=== PATIENT | female | born 1955 | race Caucasian/White ===

== ENCOUNTER 2019-05-15 04:00 | Inpatient (IN) | payer MEDICARE, OTHER ==
[~2019-05-15] VITALS: Ht 165.1 cm; Wt 95.3 kg
[2019-05-15 04:28] LABS: BASOPHILS % (AUTO) 0.4 % (0.0-2.0); EOSINOPHILS # (AUTO) 0.1 K/uL (0.0-0.7); EOSINOPHILS % (AUTO) 1.9 % (0.0-7.0); HEMATOCRIT 35.9 % (31.2-41.9); HEMOGLOBIN 12.1 g/dL (10.9-14.3); LYMPHOCYTES # (AUTO) 0.7 K/uL (20.0-40.0); MEAN CORPUSCULAR HEMOGLOBIN 30.8 uug (24.7-32.8); MEAN CORPUSCULAR HGB CONC 34 g/dL (32.3-35.6); MEAN CORPUSCULAR VOLUME 91.5 fL (75.5-95.3); MONOCYTES # (AUTO) 0.3 K/uL (2.0-10.0); NEUTROPHILS # (AUTO) 3.5 K/uL (1.8-8.9); NEUTROPHILS % (AUTO) 75.7 % (38.5-71.5); PLATELET COUNT (AUTO) 181 K/uL (179-408); RED BLOOD CELL COUNT(AUTO) 3.92 MIL/uL (3.63-4.92); WHITE BLOOD COUNT (AUTO) 4.6 K/uL (3.8-11.8)
[2019-05-15 04:36] LABS: CREATININE 0.6 mg/dL (0.6-1.3); POTASSIUM 4.2 mmol/L (3.5-5.1)
[2019-05-15] MEDS ORDERED: methylPREDNISolone SOD SUCC 125 MG/2 ML VIAL ONE (04:45)
[2019-05-15] MEDS ORDERED: ALBUTEROL SULFATE 2.5 MG/3 ML NEBU NEB ONE (04:45)
[2019-05-15] MEDS ORDERED: methylPREDNISolone SOD SUCC 125 MG/2 ML VIAL IV ONE (04:45)
[2019-05-15] MEDS ORDERED: ALBUTEROL SULFATE 2.5 MG/3 ML NEBU ONE (04:51)
[2019-05-15 04:53] LABS: BILIRUBIN,DIRECT 0.1 mg/dL (0.0-0.2); BILIRUBIN,TOTAL 0.3 mg/dL (0.2-1.0); TOTAL PROTEIN, SERUM 6.6 g/dL (6.4-8.2)
[2019-05-15] MEDS ORDERED: IOHEXOL 300MG/ML 100 ML INFUS..BTL ONE (04:54)
[2019-05-15] MEDS ORDERED: SWABABLE VALVE TRANSFER SET EA MC ONE (04:54)
[2019-05-15] MEDS ORDERED: IV NORMAL SALINE 250 ML IV ONE (04:55)
[2019-05-15] MEDS ORDERED: ARIP10TA9 PO (05:23)
[2019-05-15] MEDS ORDERED: GABA-534 PO (05:23)
[2019-05-15] MEDS ORDERED: ACET-2605 PO (05:23)
[2019-05-15] MEDS ORDERED: FLUO20CA40 PO (05:23)
[2019-05-15] MEDS ORDERED: NITR0.4T48 SL (05:23)
[2019-05-15] MEDS ORDERED: TRAM50TA2 PO (05:23)
[2019-05-15] MEDS ORDERED: LORA-259 PO (05:23)
[2019-05-15] MEDS ORDERED: MULT-1075 PO (05:23)
[2019-05-15] MEDS ORDERED: MAG30ORA PO (05:23)
[2019-05-15] MEDS ORDERED: ACET200V4 IH (05:23)
[2019-05-15] MEDS ORDERED: BENZ-13 PO (05:23)
[2019-05-15] MEDS ORDERED: MAGN400O6 PO (05:23)
[2019-05-15] MEDS ORDERED: APIX2.5T PO (05:23)
[2019-05-15] MEDS ORDERED: PANT40TA4 PO (05:23)
[2019-05-15] MEDS ORDERED: GUAI-671 PO (05:23)
[2019-05-15] MEDS ORDERED: DOCU-141 PO (05:23)
[2019-05-15] MEDS ORDERED: FLUT1BLS IH (05:23)
[2019-05-15] MEDS ORDERED: MELA5TAB20 PO (05:23)
[2019-05-15] MEDS ORDERED: IBUP-1953 PO (05:23)
[2019-05-15] MEDS ORDERED: CLON0.1T PO (05:23)
[2019-05-15] MEDS ORDERED: NA P133E RC (05:23)
[2019-05-15] MEDS ORDERED: CRAN3875 PO (05:23)
[2019-05-15] MEDS ORDERED: IPRA3AMP22 IH (05:23)
[2019-05-15] MEDS ORDERED: FLUT16SP BNOSTRILS (05:23)
[2019-05-15] MEDS ORDERED: CRAN425C6 PO (05:23)
[2019-05-15] MEDS ORDERED: ACET-2154 PO (05:23)
[2019-05-15] MEDS ORDERED: FURO20TA4 PO (05:23)
[2019-05-15] MEDS ORDERED: ZOLP5TAB2 PO (05:23)
[2019-05-15] MEDS ORDERED: AMLO10TA4 PO (05:23)
--- NOTE | 2019-05-15 06:21 | NUR ---
Paged [facility] per MD request. Pending call back from Dr. Rubi.
--- NOTE | 2019-05-15 06:25 | NUR ---
Pt. admitted to Med/Surg, under care of Dr. Rubi. Diagnosis: Pneumonia. Belongs List completed. MRSA swab done.
[2019-05-15] MEDS ORDERED: PIPERACILLIN SODIUM/TAZOBACTAM 3.375 G in IV DEXTROSE 5% 50 ML IV ONE (06:30)
[2019-05-15] MEDS ORDERED: LEVOFLOXACIN 500 MG/D5W 100ML PIGGYBACK IV ONE (06:30)
[2019-05-15] MEDS ORDERED: PIPERACILLIN/TAZOBACTAM/D5W 50 ML IV ONE (06:31)
[2019-05-15] MEDS ORDERED: LEVOFLOXACIN 500 MG/D5W 100 ML ONE (06:51)
--- NOTE | 2019-05-15 07:13 | NUR ---
Recieed Pt in bed, watching TV, NAD noted.
[2019-05-15 08:52] VITALS: BP 139/88
[2019-05-15] MEDS ORDERED: HOME MED MISCELLANEOUS XX SCH ×3 (09:45)
[2019-05-15] MEDS ORDERED: ACETAMINOPHEN ES 500 MG TABLET PO PRN (09:45)
[2019-05-15] MEDS ORDERED: BENZONATATE 100 MG CAPSULE PO PRN (09:45)
[2019-05-15] MEDS ORDERED: ACETYLCYSTEINE 20% 800 MG/4 ML VIAL INH PRN (09:45)
[2019-05-15] MEDS ORDERED: FLEET ENEMA 133 ML BOTTLE RC PRN (09:45)
[2019-05-15] MEDS ORDERED: MELATONIN 3 MG TABLET PO PRN (09:45)
[2019-05-15] MEDS ORDERED: TRAMADOL HCL 50 MG TABLET PO PRN (09:45)
[2019-05-15] MEDS ORDERED: NITROGLYCERIN 0.4 MG/TAB BOTTLE SL SCH (09:45)
[2019-05-15] MEDS ORDERED: NITROGLYCERIN 0.4 MG/TAB BOTTLE SL PRN (10:15)
[2019-05-15 11:08] VITALS: BP 139/87
[2019-05-15] MEDS: LEVOFLOXACIN 500 MG/D5W 500 MG in PREMIXED 1 EACH IV SCH (12:03)
[2019-05-15] MEDS: CLONIDINE HCL 0.1 MG TABLET PO SCH ×2 (12:08→15:53)
--- NOTE | 2019-05-15 12:25 | NUR ---
pt resting in bed alert oriented x4. Pt. denies pain/ discomfort. Pt. on 2 L NC. Pt. has productive cough. IV in L AC 20 gauge intact patent running prescribed fluids. Pt. denies SI/ HI. but does state she has had SI in past February 2019. Reported to Dr. Orr hospitalist with no new orders. Safety measures in place. Call light within reach. will continue to monitor pt.
--- NOTE | 2019-05-15 12:27 | NUR ---
Spoke to central supply technician for SCD machine who stated she will bring it up soon. Called again after a few hours. Waiting for SCD machine as pt. is high risk.
--- NOTE | 2019-05-15 14:33 | NUR ---
Provided pt. with SCD. Called RT for breathing treatment as pt. feels SOB. Pt. has been having a productive cough.
[2019-05-15] MEDS: IPRATROPIUM BROMIDE 0.5 MG/2.5 ML NEBU NEB PRN ×2 (14:55→19:12)
[2019-05-15] MEDS: ALBUTEROL SULFATE 2.5 MG/3 ML NEBU NEB PRN ×2 (14:55→19:12)
[2019-05-15 15:20] VITALS: BP 119/92
[2019-05-15] MEDS: MULTIVIT, IRON, MIN NO. 8, FA TABLET PO SCH (15:53)
[2019-05-15] MEDS: ACETAMINOPHEN 325 MG TABLET PO PRN ×2 (15:57→22:10)
[2019-05-15] MEDS: APIXABAN 5 MG TABLET PO SCH (15:57)
--- NOTE | 2019-05-15 18:23 | NUR ---
Pt. resting comfortably in bed. Pt. complaint with plan of care. Ordered breathing treatment for pt.'s SOB. Provided pt. with tylenol for mild headache. Headache relieved by tylenol. Pt. refusing SCD at this time as she is warm. Put fan in room to cool pt. down. Safety measures in place. call light within reach. will continue to monitor pt.
[2019-05-15] MEDS: MAGNESIUM HYDROXIDE 30 ML LIQUID UDC PO PRN (19:51)
[2019-05-15] MEDS: DOCUSATE SODIUM 100 MG CAPSULE PO SCH (20:22)
[2019-05-15 20:35] VITALS: BP 126/97
[2019-05-15] MEDS: GUAIFENESIN/CODEINE 5 ML LIQUID UDC PO PRN (21:18)
[2019-05-15] MEDS: ZOLPIDEM 5 MG TABLET PO PRN (22:07)
[2019-05-16] MEDS: MAG HYDROX/AL HYDROX/SIMETH 30 ML LIQUID UDC PO PRN ×3 (00:26→20:04)
[2019-05-16] MEDS: IPRATROPIUM BROMIDE 0.5 MG/2.5 ML NEBU NEB PRN ×2 (00:51→07:13)
[2019-05-16] MEDS: ALBUTEROL SULFATE 2.5 MG/3 ML NEBU NEB PRN ×2 (00:51→07:13)
[2019-05-16] MEDS: IBUPROFEN 400 MG TABLET PO PRN ×2 (01:32→16:12)
[2019-05-16] MEDS: LORAZEPAM 1 MG TABLET PO PRN ×2 (01:38→16:12)
--- NOTE | 2019-05-16 01:45 | NUR ---
Hands off report received from Shakir montesinos . Pt in no acute distress. Safety and comfort provided. Will continue to monitor.
[2019-05-16] MEDS: ACETAMINOPHEN 325 MG TABLET PO PRN ×2 (04:29→13:37)
[2019-05-16] MEDS: HYDROCODONE/APAP 5-325MG TABLET PO PRN ×2 (05:44→23:37)
[2019-05-16 05:47] VITALS: BP 140/95
[2019-05-16] MEDS: PANTOPRAZOLE SODIUM 40 MG TABLET.DR PO SCH (06:03)
--- NOTE | 2019-05-16 06:26 | NUR ---
Pt keeps on calling nursing station. Pt complaining all the time. All needs are met. Charge nurse and staff tends to her needs. Dr. Rubi ordered norco 5-325mg q6h for pain as per pt doesn't want ultram. Prescribed medication given and pt tolerated it well. Will endorse to incoming nurse for continuity of care.
[2019-05-16] MEDS: LEVOFLOXACIN 500 MG/D5W 500 MG in PREMIXED 1 EACH IV SCH (08:51)
[2019-05-16] MEDS: MULTIVIT, IRON, MIN NO. 8, FA TABLET PO SCH ×2 (08:51→16:12)
[2019-05-16] MEDS: GABAPENTIN 300 MG CAPSULE PO SCH (08:51)
[2019-05-16] MEDS: FLUOXETINE HCL 20 MG CAPSULE PO SCH (08:51)
[2019-05-16] MEDS: ARIPIPRAZOLE 2 MG TABLET PO SCH (08:52)
[2019-05-16] MEDS: CLONIDINE HCL 0.1 MG TABLET PO SCH ×3 (08:52→16:13)
[2019-05-16] MEDS: FLUTICASONE/VILANTEROL 1 EACH BLST.W.DEV IH SCH (08:52)
[2019-05-16] MEDS: FLUTICASONE PROP NASAL SPRAY 16 GM BOTTLE NS SCH (08:52)
[2019-05-16] MEDS: AMLODIPINE 10 MG TABLET PO SCH (08:53)
[2019-05-16] MEDS: FUROSEMIDE 20 MG TABLET PO SCH (08:53)
[2019-05-16] MEDS: APIXABAN 5 MG TABLET PO SCH ×2 (08:55→17:55)
[2019-05-16] MEDS: MAGNESIUM HYDROXIDE 30 ML LIQUID UDC PO PRN (08:56)
[2019-05-16] MEDS ORDERED: ARIPIPRAZOLE 10 MG TABLET PO SCH (09:00)
[2019-05-16] MEDS ORDERED: MAG HYDROX/AL HYDROX/SIMETH 30 ML LIQUID UDC PO SCH (09:00)
--- NOTE | 2019-05-16 11:34 | NUR ---
pt resting in bed alert oriented x4. Pt. denies pain/ discomfort. Pt. on 2 L NC. Pt. has productive cough. IV in R AC 20 gauge intact patent running prescribed antibiotics. Pt. denies SI/ HI. Safety measures in place. Call light within reach. will continue to monitor pt.
[2019-05-16 12:06] VITALS: BP 111/72
[2019-05-16] MEDS: IPRATROPIUM BROMIDE 0.5 MG/2.5 ML NEBU NEB SCH ×3 (12:19→19:22)
[2019-05-16] MEDS: ALBUTEROL SULFATE 2.5 MG/3 ML NEBU NEB SCH ×3 (12:19→19:22)
[2019-05-16] MEDS: methylPREDNISolone SOD SUCC 40 MG/ML VIAL IV SCH ×2 (13:07→21:12)
[2019-05-16 16:11] VITALS: BP 141/78
[2019-05-16] MEDS: GUAIFENESIN/CODEINE 5 ML LIQUID UDC PO PRN (16:12)
--- NOTE | 2019-05-16 19:30 | NUR ---
RECEIVED PT AWAKE, ALERT AND ORIENTED X3. PT IN NO ACUTE RESPIRATORY DISTRESS. PT ANXIOUS, CRYING, AND SCREAMING. TENDS TO HER NEEDS BUT STILL PT STILL DISRUPTIVE AND SCREAMING. WILL CALL MD FOR ORDERS. SAFETY PROVIDED. WILL CONTINUE TO MONITOR.
[2019-05-16] MEDS ORDERED: LORAZEPAM 2 MG/1 ML VIAL IV ONE (19:45)
--- NOTE | 2019-05-16 19:45 | NUR ---
DR WRAPPER STEMMER HAND ORDERED ATIVAN 0.5MG ONCE IV FOR PT.
[2019-05-16] MEDS: ropiniROLE 0.5 MG TABLET PO SCH (20:04)
[2019-05-16] MEDS: DOCUSATE SODIUM 100 MG CAPSULE PO SCH (20:04)
--- NOTE | 2019-05-16 20:04 | NUR ---
ATIVAN GIVEN. PT ANXIOUS, SCREAMING ,YELLING. PT IN NO ACUTE RESPIRATORY DISTRESS. WILL CONTINUE TO MONITOR.
[2019-05-16 20:16] VITALS: BP 140/97
[2019-05-17] MEDS ORDERED: LORAZEPAM 2 MG/1 ML VIAL IV STA (01:01)
--- NOTE | 2019-05-17 01:01 | NUR ---
BAG TURNER ORDERED ATIVAN I MG IV ONETIME. PT YELLING, SCREAMING, THROWING STUFF, PULLED OUT HER IV, CALLING 911, AGITATED. CHANGED THE ROOM OF THE PT BECAUSE PT WAS DISRUPTIVE AND SCREAMING. OTHER PATIENTS COMPLAINING ABOUT HER NOISE. STAFF TENDS TO HER NEEDS. PT REFUSING TO PUT HER DIAPER, GOWN, AND OXYGEN AND HER IV. WILL CONTINUE TO MONITOR.
--- NOTE | 2019-05-17 05:16 | NUR ---
PT YELLING, SCREAMING, AND CURSING STAFF. STAFF TENDS TO HER NEEDS. PT IN NO ACUTE RESPIRATORY DISTRESS. PT REFUSING HER GOWN AND IV. WILL CONTINUE TO MONITOR.
[2019-05-17] MEDS: methylPREDNISolone SOD SUCC 40 MG/ML VIAL IV SCH ×3 (05:30→21:00)
--- NOTE | 2019-05-17 05:45 | NUR ---
PT REFUSING STAFF TO CHANGED HER BEDSHEETS, LINENS, PUT GOWN ON HER AND DIAPER. PT IN NO RESPIRATORY DISTRESS. PT STILL SCREAMING,YELLING AND ABUSIVE TO STAFF. WILL CONTINUE TO MONITOR.
--- NOTE | 2019-05-17 06:15 | NUR ---
pt scooted self to the floor, complete linen changed done,assisted back to bed via 3 man lift, pt stated that she wants the assistant account manager to carolyn how she is when they come.
--- NOTE | 2019-05-17 06:23 | NUR ---
pt had called 911,multiple times, and claiming she is being treated unkindly, police dispatch was informed pt has mental problems and will be seen by psych md in am, continues to call out loudly and saying leave her alone when . being helped.refused to wear gown and tried several occassions to get out of bed to throw herself on the floor,repositioned and kept dry and clean thru out the niite, oxygen inhalation via nasal cannula on, saturating at 94% most of the time.constantly removing diaper and chux to wet the bedsheets ,blanket and pillows. consciously spilling water from the pitcher and throwing items on the floor.
--- NOTE | 2019-05-17 06:42 | NUR ---
pt monitored for safety and comfort, nursing pasteurizing supervisor and nursing staff had actively listened to her ,skilled assessment done regarding pain ,and other needs,
[2019-05-17] MEDS: PANTOPRAZOLE SODIUM 40 MG TABLET.DR PO SCH (06:54)
--- NOTE | 2019-05-17 07:00 | NUR ---
PT IN NO ACUTE RESPIRATORY DISTRESS. GIVEN REPORT TO INCOMING NURSE.PT CONTINUES TO YELL, SCREAM AND VERBALLY ABUSIVE.WILL CONTINUE TO MONITOR.
--- NOTE | 2019-05-17 07:30 | NUR ---
Patient screaming and yelling upon arrival ; Patient calling 911 multiple times stating she wants to be naked so police can see lack of care; patient tried to be oriented and redirected that we could help her with clothing ; patient continually kept screaming; night time nurse explained that psychiatrist was contacted at night but could not changed psych medications as she had no evaluated patient her self and would come in as soon as possible to change Meds and aid with patient tantrums.
[2019-05-17] MEDS: IPRATROPIUM BROMIDE 0.5 MG/2.5 ML NEBU NEB SCH ×4 (07:35→20:11)
[2019-05-17] MEDS: ALBUTEROL SULFATE 2.5 MG/3 ML NEBU NEB SCH ×4 (07:35→20:11)
[2019-05-17] MEDS: APIXABAN 5 MG TABLET PO SCH ×2 (08:56→17:24)
[2019-05-17] MEDS: CLONIDINE HCL 0.1 MG TABLET PO SCH ×3 (08:58→17:21)
[2019-05-17] MEDS: FUROSEMIDE 20 MG TABLET PO SCH (08:58)
[2019-05-17] MEDS: AMLODIPINE 10 MG TABLET PO SCH (08:58)
[2019-05-17] MEDS: MULTIVIT, IRON, MIN NO. 8, FA TABLET PO SCH ×2 (08:58→17:19)
[2019-05-17] MEDS: GABAPENTIN 300 MG CAPSULE PO SCH (08:58)
[2019-05-17] MEDS: FLUTICASONE PROP NASAL SPRAY 16 GM BOTTLE NS SCH (08:59)
[2019-05-17] MEDS: FLUTICASONE/VILANTEROL 1 EACH BLST.W.DEV IH SCH (08:59)
[2019-05-17] MEDS: FLUOXETINE HCL 20 MG CAPSULE PO SCH (08:59)
[2019-05-17] MEDS: ARIPIPRAZOLE 2 MG TABLET PO SCH (09:00)
[2019-05-17] MEDS: MAGNESIUM HYDROXIDE 30 ML LIQUID UDC PO PRN (09:20)
[2019-05-17] MEDS: LEVOFLOXACIN 500 MG/D5W 500 MG in PREMIXED 1 EACH IV SCH (09:42)
[2019-05-17] MEDS: HYDROCODONE/APAP 5-325MG TABLET PO PRN ×2 (09:58→21:37)
[2019-05-17 11:14] LABS: ABG BASE EXCESS 1.3 mmol/L; ABG PCO2 52.9 mmHg (35.0-45.0); ABG PH 7.341 (7.350-7.450); ABG PO2 100.6 mmHg (75.0-100.0); ABG SITE RIGHT RADIAL; ABG TOTAL HEMOGLOBIN 13.5 G/dL (12.0-16.0); COHb 1.7 % (0.5-1.5); MetHb 0.1 % (0.0-1.5); O2Hb 96.2 % (94.0-97.0); VENT MODE Nasal Cannula
[2019-05-17 11:27] VITALS: BP 94/65
[2019-05-17] MEDS: ACETAMINOPHEN 325 MG TABLET PO PRN (12:20)
[2019-05-17] MEDS: CARBIDOPA/LEVODOPA 25-100MG TABLET PO SCH ×2 (12:21→17:19)
[2019-05-17] MEDS: risperiDONE 1 MG TABLET PO SCH ×3 (12:21→20:42)
[2019-05-17] MEDS ORDERED: GABAPENTIN 100 MG CAPSULE PO SCH (13:00)
[2019-05-17] MEDS: IBUPROFEN 400 MG TABLET PO PRN (15:37)
[2019-05-17 15:39] VITALS: BP 108/68
[2019-05-17] MEDS: GABAPENTIN 100 MG CAPSULE PO SCH (17:20)
--- NOTE | 2019-05-17 19:35 | NUR ---
Through out shift lapd arrived as patient called 911 multiple times; lapd explained that patient will have psych consultation arrive soon for adjusting of Meds as patient has multiple psychiatric disorders. Attending psychiatrist came and changed patient meds after consulting patient ; patient agreed to medication adjustment; patient had multiple outburst through out shift; patient tried to be redirected multiple times and reoriented ; patient at times compliant and calm with yet with random large outburst of screaming. Report given to oncoming nurse.
--- NOTE | 2019-05-17 20:00 | NUR ---
Received report from AM nurse regarding patient. Received patient in bed, awake alert and verbally responsive. Complains of generalized body pain, call light issues and complaints regarding care. Provided active listening to patient. And ensured her that care will be provided to her promptly. Patient noted to be slightly manipulative, professional limits maintained. Not in any active distress, breathing treatments on going. No active signs of infection/sepsis. Reinforced teaching on relaxation techniques. Will continue to monitor.
[2019-05-17 20:08] VITALS: BP 114/70
[2019-05-17] MEDS: DOCUSATE SODIUM 100 MG CAPSULE PO SCH (20:45)
[2019-05-17] MEDS: ropiniROLE 0.5 MG TABLET PO SCH (20:46)
[2019-05-17] MEDS ORDERED: MELATONIN 3 MG TABLET PO SCH (21:00)
[2019-05-17] MEDS: LORAZEPAM 1 MG TABLET PO PRN (21:38)
[2019-05-17] MEDS: ZOLPIDEM 5 MG TABLET PO PRN (21:38)
[2019-05-18] MEDS: IBUPROFEN 400 MG TABLET PO PRN (02:00)
[2019-05-18] MEDS: ropiniROLE 0.5 MG TABLET PO SCH (02:47)
[2019-05-18] MEDS: ALBUTEROL SULFATE 2.5 MG/3 ML NEBU NEB PRN (03:22)
[2019-05-18] MEDS: IPRATROPIUM BROMIDE 0.5 MG/2.5 ML NEBU NEB PRN (03:22)
[2019-05-18] MEDS: PANTOPRAZOLE SODIUM 40 MG TABLET.DR PO SCH (05:16)
[2019-05-18] MEDS: methylPREDNISolone SOD SUCC 40 MG/ML VIAL IV SCH (05:16)
[2019-05-18] MEDS: HYDROCODONE/APAP 5-325MG TABLET PO PRN ×2 (05:16→11:16)
[2019-05-18 06:20] LABS: BASOPHILS % (AUTO) 0.1 % (0.0-2.0); HEMATOCRIT 37.2 % (31.2-41.9); HEMOGLOBIN 12.3 g/dL (10.9-14.3); LYMPHOCYTES # (AUTO) 0.5 K/uL (20.0-40.0); LYMPHOCYTES % (AUTO) 13.3 % (20.5-51.5); MEAN CORPUSCULAR HEMOGLOBIN 31.4 uug (24.7-32.8); MEAN CORPUSCULAR HGB CONC 33 g/dL (32.3-35.6); MEAN CORPUSCULAR VOLUME 94.7 fL (75.5-95.3); MONOCYTES # (AUTO) 0.3 K/uL (2.0-10.0); MONOCYTES % (AUTO) 8.7 % (0.0-11.0); NEUTROPHILS # (AUTO) 2.8 K/uL (1.8-8.9); NEUTROPHILS % (AUTO) 77.9 % (38.5-71.5); PLATELET COUNT (AUTO) 172 K/uL (179-408); RED BLOOD CELL COUNT(AUTO) 3.93 MIL/uL (3.63-4.92); WHITE BLOOD COUNT (AUTO) 3.6 K/uL (3.8-11.8)
--- NOTE | 2019-05-18 06:30 | NUR ---
Patient slept intermittently throughout the night. Frequent call lights noted, multiple calls within an hour. About 3-4 hours of straight sleep only. Complained of leg/generalized pain, medicated with Sterling 5/325mg x 2, Tramadol 50 x 1, Ibuprofen x 1 dose as ordered. Effective for a certain time, but pain appears to be chronic. Patient also complains of anxiety Ativan x 1 given. All other due medications given. Pt took Requip late because she initially refused at bedtime, and agreed to take it around 2-3 in the AM. Patient also kept requesting for drinks, snacks and diaper changes. Kept on O2 2LPM, no signs of sepsis noted. Breathing tx given routinely and x1 PRN. All needs attended promptly. No behavioral episodes similar to night prior. Will continue to monitor and endorse accordingly.
[2019-05-18 06:38] LABS: BILIRUBIN,TOTAL 0.2 mg/dL (0.2-1.0); CREATININE 0.6 mg/dL (0.6-1.3); PHOSPHOROUS 4.3 mg/dL (2.5-4.9); POTASSIUM 4.4 mmol/L (3.5-5.1); TOTAL PROTEIN, SERUM 6.4 g/dL (6.4-8.2)
[2019-05-18] MEDS: ALBUTEROL SULFATE 2.5 MG/3 ML NEBU NEB SCH ×2 (07:19→11:08)
[2019-05-18] MEDS: IPRATROPIUM BROMIDE 0.5 MG/2.5 ML NEBU NEB SCH ×2 (07:19→11:08)
[2019-05-18] MEDS ORDERED: METH4TAB3 PO (07:22)
[2019-05-18] MEDS ORDERED: GABA-532 PO (07:22)
[2019-05-18] MEDS ORDERED: ROPI0.5T2 PO (07:22)
[2019-05-18] MEDS ORDERED: RISP1TAB7 PO (07:22)
[2019-05-18] MEDS ORDERED: LEVO500T2 PO (07:25)
[2019-05-18] MEDS: CARBIDOPA/LEVODOPA 25-100MG TABLET PO SCH ×2 (08:04→12:31)
[2019-05-18] MEDS: risperiDONE 1 MG TABLET PO SCH ×2 (08:04→12:31)
[2019-05-18] MEDS: AMLODIPINE 10 MG TABLET PO SCH (08:04)
[2019-05-18] MEDS: MULTIVIT, IRON, MIN NO. 8, FA TABLET PO SCH (08:04)
[2019-05-18] MEDS: CLONIDINE HCL 0.1 MG TABLET PO SCH ×2 (08:04→12:31)
[2019-05-18] MEDS: GABAPENTIN 100 MG CAPSULE PO SCH (08:05)
[2019-05-18] MEDS: FUROSEMIDE 20 MG TABLET PO SCH (08:05)
[2019-05-18] MEDS: FLUTICASONE PROP NASAL SPRAY 16 GM BOTTLE NS SCH (08:07)
[2019-05-18] MEDS: FLUTICASONE/VILANTEROL 1 EACH BLST.W.DEV IH SCH (08:07)
[2019-05-18] MEDS: APIXABAN 5 MG TABLET PO SCH (08:08)
[2019-05-18] MEDS: LEVOFLOXACIN 500 MG/D5W 500 MG in PREMIXED 1 EACH IV SCH (08:17)
[2019-05-18] MEDS: MAG HYDROX/AL HYDROX/SIMETH 30 ML LIQUID UDC PO PRN (08:29)
[2019-05-18] MEDS: GUAIFENESIN/CODEINE 5 ML LIQUID UDC PO PRN (10:16)
[2019-05-18 11:32] VITALS: BP 131/85
[2019-05-18 12:31] VITALS: BP 131/85
--- NOTE | 2019-05-18 13:37 | NUR ---
dc orders received noted and carried out,dc instruction and rn report given to the prison to hetal montesinos per md orders,pt left the facility via ambulances in stable condition
[2019-05-18] MEDS ORDERED: methylPREDNISolone SOD SUCC 40 MG/ML VIAL IV SCH (18:00)
== END 2019-05-18 13:45 | DRG 190 ==
LOC: ER 04:06 → MEDSURG3 07:49
PROVIDERS: ADMIT Internal Medicine; ATTEND Internal Medicine Nephrology
DX: J44.1 Chronic obstructive pulmonary disease with (acute) exacerbation (principal); J15.9 Unspecified bacterial pneumonia; J98.11 Atelectasis; J44.0 Chronic obstructive pulmonary disease with (acute) lower respiratory infection; E66.01 Morbid (severe) obesity due to excess calories; G20 Parkinson's disease; E03.9 Hypothyroidism, unspecified; G25.81 Restless legs syndrome; K21.9 Gastro-esophageal reflux disease without esophagitis; M62.50 Muscle wasting and atrophy, not elsewhere classified, unspecified site; F25.0 Schizoaffective disorder, bipolar type; F41.9 Anxiety disorder, unspecified; I11.0 Hypertensive heart disease with heart failure; I50.9 Heart failure, unspecified; F60.3 Borderline personality disorder; Z79.01 Long term (current) use of anticoagulants; Z79.51 Long term (current) use of inhaled steroids; Z79.899 Other long term (current) drug therapy; Z83.2 Family history of diseases of the blood and blood-forming organs and certain disorders involving the immune mechanism; Z87.891 Personal history of nicotine dependence; M19.90 Unspecified osteoarthritis, unspecified site; J20.9 Acute bronchitis, unspecified; Z88.8 Allergy status to other drugs, medicaments and biological substances
CPT/HCPCS: 36415; 36600; 70030-TC; 71045; 71275; 82785; 83605; 83735; 84100; 85025; 85730; 87040; 93005; 94640; 94664; A4663; G0378; J1956; J2060; J2543; J2920; J2930; J3535; J3590; J7050; Q9967

== ENCOUNTER 2019-09-01 16:03 | Inpatient (IN) | payer MEDICARE, OTHER ==
[~2019-09-01] VITALS: Ht 165.1 cm; Wt 95.3 kg
[~2019-09-01 16:03] MED LIST: ACET-2154 PO; ACET-2605 PO; ACET200V4 IH; AMLO10TA4 PO; APIX2.5T PO; BENZ-13 PO; CLON0.1T PO; CRAN3875 PO; CRAN425C6 PO; DOCU-141 PO; FLUO20CA42 PO; FLUT16SP BNOSTRILS; FLUT1BLS IH; FURO20TA4 PO; GABA-532 PO; GUAI-671 PO; IBUP-1953 PO; IPRA3AMP22 IH; LEVO500T2 PO; LORA-259 PO; MAG30ORA PO; MAGN400O6 PO; MELA5TAB20 PO; METH4TAB3 PO; MULT-1075 PO; NA P133E RC; NITR0.4T48 SL; PANT40TA4 PO; RISP1TAB7 PO; ROPI0.5T4 PO; TRAM50TA2 PO; ZOLP5TAB2 PO
[2019-09-01] MEDS ORDERED: IV NORMAL SALINE 1000 ML BAG IV ONE (16:30)
[2019-09-01] MEDS ORDERED: LATA2.5D2 EACHEYE (16:43)
[2019-09-01] MEDS ORDERED: CRAN3875 PO (16:43)
[2019-09-01] MEDS ORDERED: HYDR-4075 PO (16:43)
[2019-09-01] MEDS ORDERED: SIMETHICONE PO (16:43)
[2019-09-01] MEDS ORDERED: DIAZ5TAB PO (16:43)
[2019-09-01] MEDS ORDERED: BACL10TA PO (16:43)
[2019-09-01] MEDS ORDERED: LACT1CAP61 PO (16:43)
[2019-09-01] MEDS ORDERED: BISA10SU61 RC (16:43)
[2019-09-01] MEDS ORDERED: NA P133E RC (16:43)
[2019-09-01 16:46] LABS: EOSINOPHILS % (AUTO) 0.1 % (0.0-7.0); LYMPHOCYTES # (AUTO) 0.3 K/uL (20.0-40.0); MONOCYTES # (AUTO) 0.2 K/uL (2.0-10.0); NEUTROPHILS # (AUTO) 0.9 K/uL (1.8-8.9); RED BLOOD CELL COUNT(AUTO) 4.29 MIL/uL (3.63-4.92)
[2019-09-01 16:48] LABS: BASOPHILS % (AUTO) 0.3 % (0.0-2.0); HEMATOCRIT 38.7 % (31.2-41.9); LYMPHOCYTES % (AUTO) 20.2 % (20.5-51.5); MEAN CORPUSCULAR HEMOGLOBIN 30.4 uug (24.7-32.8); MEAN CORPUSCULAR HGB CONC 34 g/dL (32.3-35.6); MEAN CORPUSCULAR VOLUME 90.3 fL (75.5-95.3); MONOCYTES % (AUTO) 17.3 % (0.0-11.0); NEUTROPHILS % (AUTO) 62.1 % (38.5-71.5); PLATELET COUNT (AUTO) 80 K/uL (179-408)
[2019-09-01 16:52] LABS: CREATININE 0.7 mg/dL (0.6-1.3); WHITE BLOOD COUNT (AUTO) 1.4 K/uL (3.8-11.8)
[2019-09-01] MEDS ORDERED: ALBUTEROL SULFATE 2.5 MG/3 ML NEBU NEB ONE (17:00)
[2019-09-01] MEDS ORDERED: IPRATROPIUM BROMIDE 0.5 MG/2.5 ML NEBU NEB ONE (17:00)
[2019-09-01 17:08] LABS: BILIRUBIN,DIRECT 0.1 mg/dL (0.0-0.2); BILIRUBIN,TOTAL 0.1 mg/dL (0.2-1.0); TOTAL PROTEIN, SERUM 6.6 g/dL (6.4-8.2)
[2019-09-01] MEDS ORDERED: IPRATROPIUM BROMIDE 0.5 MG/2.5 ML NEBU ONE (17:14)
[2019-09-01] MEDS ORDERED: ALBUTEROL SULFATE 2.5 MG/3 ML NEBU ONE (17:14)
[2019-09-01 17:20] LABS: BAND % (MANUAL) 15 % (0-10); LYMPHOCYTES % (MANUAL) 20 % (20-40); MONOCYTES % (MANUAL) 17 % (2-10); NEUTROPHILS % (MANUAL) 48 % (42-75)
--- NOTE | 2019-09-01 17:40 | NUR ---
pt complaining of back pain, requesting tylenol. notified.
[2019-09-01] MEDS ORDERED: ACETAMINOPHEN ES 500 MG TABLET ONE (17:48)
[2019-09-01] MEDS ORDERED: ACETAMINOPHEN 325 MG TABLET PO ONE (18:00)
--- NOTE | 2019-09-01 18:37 | NUR ---
pt transfered to floor in stable condition. pt was on o2 via nc, 3 ltre. pt coughing improved after breathing treatment. pt transfered to floor following hospital covid guidelines.
[2019-09-01 18:49] VITALS: BP 131/79
--- NOTE | 2019-09-01 19:10 | NUR ---
Received pt from ED via [facility] at 1834. VS taken per protocol, noted with elevated temp 100.7F. Cooling measures initiated. Pt received tylenol at ED. Pt. A/OX4, verbally responsive and able to make her needs know. Incontinent of both b&B. PIV on LFA 20G patent and intact. Skin intact, no wound seen during skin assessment. Currently on 3LPM via NC and tolerating well. All pt. needs attended at this time. Safety measures in place. Call light and all frequently used items within pt. reach. Will endorse to oncoming shift accordingly.
[2019-09-01] MEDS ORDERED: BACLOFEN 10 MG TABLET PO PRN (19:15)
[2019-09-01] MEDS ORDERED: FLUTICASONE PROP NASAL SPRAY 16 GM BOTTLE NS PRN (19:15)
[2019-09-01] MEDS ORDERED: ALBUTEROL SULFATE 2.5 MG/3 ML NEBU NEB PRN (19:30)
[2019-09-01] MEDS ORDERED: IPRATROPIUM BROMIDE 0.5 MG/2.5 ML NEBU NEB PRN (19:30)
[2019-09-01 20:00] VITALS: BP 118/82
[2019-09-01] MEDS: LATANOPROST OPHT DROP 2.5 ML BOTTLE EACHEYE SCH (20:52)
[2019-09-01] MEDS: risperiDONE 1 MG TABLET PO SCH (20:53)
[2019-09-01] MEDS: ropiniROLE 0.5 MG TABLET PO SCH (20:53)
[2019-09-01] MEDS: APIXABAN 5 MG TABLET PO SCH (20:55)
[2019-09-01] MEDS: DOCUSATE SODIUM 100 MG CAPSULE PO SCH (21:00)
[2019-09-01] MEDS: CULTURELLE CAPSULE PO SCH (21:00)
[2019-09-01] MEDS: MAG HYDROX/AL HYDROX/SIMETH 30 ML LIQUID UDC PO PRN (22:03)
[2019-09-01] MEDS: HYDROXYCHLOROQUINE SULFATE 200 MG TABLET PO SCH (22:03)
[2019-09-01] MEDS: ONDANSETRON 4 MG/2 ML VIAL IV PRN (23:11)
[2019-09-01] MEDS: ACETAMINOPHEN 325 MG TABLET PO PRN (23:53)
[2019-09-02] VITALS: BP 115/64
[2019-09-02] MEDS: MELATONIN 3 MG TABLET PO PRN ×2 (02:16→21:33)
--- NOTE | 2019-09-02 03:05 | NUR ---
inserted chris at this time patient complains of abdominal pain. patient states that is on lasix. changed of incontinence frequently and abdominal discomfort continues. orders to obtain urine. inserted chris at this time. patient states that abdominal discomfort relieved. 300ml output post incontinence episode.
[2019-09-02 04:11] LABS: *BILIRUBIN,URIN NEGATIVE (NEGATIVE); *BLOOD, URINE 1+ (NEGATIVE); *CLARITY,URINE CLEAR (CLEAR); *COLOR,URINE YELLOW (YELLOW); *KETONES,URINE NEGATIVE (NEGATIVE); *UROBILINOGEN,URINE 0.2 E.U./dl (NORMAL); LEUKOCYTE ESTERASE ,URINE NEGATIVE (NEGATIVE); NITRITE, URINE NEGATIVE (NEGATIVE); PH,URINE 6.5 (5.0-8.0); UGLUCOSE NEGATIVE (NEGATIVE)
[2019-09-02 04:25] LABS: BACTERIA,URINE NONE SEEN /HPF (NONE SEEN); RBC,URINE 0-3 /HPF (0-3); SQUAMOUS EPITHELIAL CELL,UR FEW /HPF (NONE SEEN); WBC,URINE 0-3 /HPF (0-3)
[2019-09-02 04:56] VITALS: BP 119/73
[2019-09-02] MEDS: MAG HYDROX/AL HYDROX/SIMETH 30 ML LIQUID UDC PO PRN ×2 (05:31→21:40)
[2019-09-02 06:19] LABS: MAGNESIUM 2.1 mg/dL (1.8-2.4); PHOSPHOROUS 3.4 mg/dL (2.5-4.9)
[2019-09-02 08:00] VITALS: BP 123/83
--- NOTE | 2019-09-02 08:00 | NUR ---
Received patient in bed, awake and verbally responsive. On Oxygen at 3L via Nasal Canula saturating 95%, Productive cough noted, temperature of 99.9F (Oral). On contact and droplet Precaution for R/O covid 19, Proper PPE strictly Observed. Kept comfortable. Will continue to monitor.
[2019-09-02] MEDS: risperiDONE 1 MG TABLET PO SCH ×4 (08:07→20:44)
[2019-09-02] MEDS: APIXABAN 5 MG TABLET PO SCH ×2 (08:08→20:45)
[2019-09-02] MEDS: GABAPENTIN 100 MG CAPSULE PO SCH ×2 (08:09→16:48)
[2019-09-02] MEDS: AMLODIPINE 10 MG TABLET PO SCH (08:15)
[2019-09-02] MEDS: MULTIVITAMINS,THERAPEUTIC TABLET PO SCH ×2 (08:16→16:48)
[2019-09-02] MEDS: FLUOXETINE HCL 20 MG CAPSULE PO SCH (08:16)
[2019-09-02] MEDS: HYDROXYCHLOROQUINE SULFATE 200 MG TABLET PO SCH ×2 (08:16→20:47)
[2019-09-02] MEDS: DIAZEPAM 5 MG TABLET PO SCH (09:16)
[2019-09-02] MEDS: ACETAMINOPHEN 325 MG TABLET PO PRN ×2 (09:40→16:57)
[2019-09-02] MEDS: CULTURELLE CAPSULE PO SCH ×2 (10:14→20:44)
[2019-09-02] MEDS ORDERED: SIMETHICONE 80 MG TAB.CHEW PO PRN ×2 (10:15→11:00)
[2019-09-02] MEDS: PANTOPRAZOLE SODIUM 40 MG TABLET.DR PO SCH (10:59)
[2019-09-02 11:00] VITALS: BP 131/74
[2019-09-02] MEDS: BENZONATATE 100 MG CAPSULE PO PRN (11:47)
[2019-09-02] MEDS: DOXYCYCLINE HYCLATE IV 100 MG in IV DEXTROSE 5% 100 ML IV SCH ×2 (12:27→20:44)
[2019-09-02] MEDS ORDERED: FUROSEMIDE 40 MG/4 ML VIAL IV ONE (14:30)
[2019-09-02 17:00] VITALS: BP 134/80
[2019-09-02] MEDS: IPRATROPIUM BROMIDE 12.9 GM INHALER INH PRN (17:06)
[2019-09-02] MEDS ORDERED: Z GUARD REMEDY PASTE 57 GM TUBE TOP PRN (18:15)
--- NOTE | 2019-09-02 18:17 | NUR ---
Patient in bed, awake and verbally responsive. Wean Oxygen from 3L to 2L via Nasal canula, saturating 92-93%. Noted with Productive cough, Atrovent 1puff given for complaining of SOB, Patient had a fever 101.2, tylenol 650mg given as ordered. All due medications given as ordered. UA output 3300 via Coates catheter. Kept clean and comfortable. Will endorse to Oncoming Nurse.
[2019-09-02] MEDS: SIMETHICONE 80 MG TAB.CHEW PO PRN (19:14)
--- NOTE | 2019-09-02 20:00 | NUR ---
Received patient awake and alert in bed, screaming about not being able to breathe. Wants breathing treatment, explained to patient she only has inhalers ordered. She is on 3L saturating at 93%. Patient has temperature of 100.2 Patient refused cooling measures, only cold compress on head. Tylenol is not yet due. Heplock on the left forearm is intact and patent. Coates catheter is intact and draining well. Safety measures initiated. Bed is low and locked, call light within reach. Will continue to monitor.
[2019-09-02 20:08] VITALS: BP 138/70
[2019-09-02] MEDS: DOCUSATE SODIUM 100 MG CAPSULE PO SCH (20:44)
[2019-09-02] MEDS: LATANOPROST OPHT DROP 2.5 ML BOTTLE EACHEYE SCH (20:44)
[2019-09-02] MEDS: ropiniROLE 0.5 MG TABLET PO SCH (20:45)
[2019-09-02] MEDS: ALBUTEROL SULFATE IH PRN (20:46)
[2019-09-03] VITALS (9 sets, daily range): BP systolic 111–156; BP diastolic 55–91
--- NOTE | 2019-09-03 00:10 | NUR ---
Patient has temp of 102.7 Tylenol given and patient agreed to do cooling measures. Patient complaining of abdominal cramping. Gave PRN medications. Will continue to monitor
[2019-09-03] MEDS: ACETAMINOPHEN 325 MG TABLET PO PRN ×2 (00:24→11:33)
[2019-09-03] MEDS: IPRATROPIUM BROMIDE 12.9 GM INHALER INH PRN (00:25)
[2019-09-03] MEDS: SIMETHICONE 80 MG TAB.CHEW PO PRN ×2 (00:27→11:34)
--- NOTE | 2019-09-03 02:41 | NUR ---
Endorsed to Dr. Vargas about positive results for COVID19.
[2019-09-03 06:49] LABS: HEMOGLOBIN 12.1 g/dL (10.9-14.3); LYMPHOCYTES # (AUTO) 0.3 K/uL (20.0-40.0); MONOCYTES # (AUTO) 0.2 K/uL (2.0-10.0); NEUTROPHILS # (AUTO) 0.6 K/uL (1.8-8.9)
[2019-09-03 06:50] LABS: BASOPHILS % (AUTO) 0.2 % (0.0-2.0); CREATININE 0.6 mg/dL (0.6-1.3); HEMATOCRIT 36.5 % (31.2-41.9); LYMPHOCYTES % (AUTO) 30.1 % (20.5-51.5); MAGNESIUM 2.1 mg/dL (1.8-2.4); MEAN CORPUSCULAR HEMOGLOBIN 29.9 uug (24.7-32.8); MEAN CORPUSCULAR HGB CONC 33 g/dL (32.3-35.6); MONOCYTES % (AUTO) 18.2 % (0.0-11.0); NEUTROPHILS % (AUTO) 51.5 % (38.5-71.5); PHOSPHOROUS 4.2 mg/dL (2.5-4.9); PLATELET COUNT (AUTO) 71 K/uL (179-408); POTASSIUM 4.1 mmol/L (3.5-5.1); RED BLOOD CELL COUNT(AUTO) 4.06 MIL/uL (3.63-4.92)
[2019-09-03 07:01] LABS: WHITE BLOOD COUNT (AUTO) 1.1 K/uL (3.8-11.8)
--- NOTE | 2019-09-03 07:13 | NUR ---
Brian from lab called for critical result of WBC 1.1 Will endorse to next shift.
[2019-09-03] MEDS: risperiDONE 1 MG TABLET PO SCH ×4 (08:00→20:05)
[2019-09-03 08:11] LABS: ABG BASE EXCESS 4.2 mmol/L; ABG HCO3 32.8 mmol/L; ABG PCO2 69.7 mmHg (35.0-45.0); ABG PH 7.291 (7.350-7.450); ABG PO2 64.3 mmHg (75.0-100.0); ABG SITE RIGHT RADIAL; ABG TOTAL HEMOGLOBIN 13.2 G/dL (12.0-16.0); COHb 1.4 % (0.5-1.5); MetHb 0.3 % (0.0-1.5); O2Hb 90.3 % (94.0-97.0); VENT MODE Nasal Cannula
[2019-09-03] MEDS: APIXABAN 5 MG TABLET PO SCH ×2 (09:00→21:23)
[2019-09-03] MEDS: DOXYCYCLINE HYCLATE IV 100 MG in IV DEXTROSE 5% 100 ML IV SCH ×2 (09:00→21:00)
[2019-09-03] MEDS: FUROSEMIDE 20 MG TABLET PO SCH (09:43)
[2019-09-03] MEDS: DIAZEPAM 5 MG TABLET PO SCH (09:43)
[2019-09-03] MEDS: MULTIVITAMINS,THERAPEUTIC TABLET PO SCH ×2 (09:43→16:04)
[2019-09-03] MEDS: HYDROXYCHLOROQUINE SULFATE 200 MG TABLET PO SCH ×2 (09:43→21:28)
[2019-09-03] MEDS: PANTOPRAZOLE SODIUM 40 MG TABLET.DR PO SCH (09:43)
[2019-09-03] MEDS: AMLODIPINE 10 MG TABLET PO SCH (09:45)
[2019-09-03] MEDS: GABAPENTIN 100 MG CAPSULE PO SCH ×2 (09:46→16:04)
[2019-09-03] MEDS: FLUOXETINE HCL 20 MG CAPSULE PO SCH (09:46)
[2019-09-03] MEDS: CULTURELLE CAPSULE PO SCH ×2 (09:47→20:31)
[2019-09-03] MEDS: MAG HYDROX/AL HYDROX/SIMETH 30 ML LIQUID UDC PO PRN (09:49)
[2019-09-03 10:04] LABS: BAND % (MANUAL) 5 % (0-10); LYMPHOCYTES % (MANUAL) 35 % (20-40); MONOCYTES % (MANUAL) 10 % (2-10); NEUTROPHILS % (MANUAL) 50 % (42-75)
[2019-09-03] MEDS: BENZONATATE 100 MG CAPSULE PO PRN (11:33)
[2019-09-03] MEDS: ONDANSETRON 4 MG/2 ML VIAL IV PRN (13:05)
--- NOTE | 2019-09-03 13:47 | NUR ---
Pt received this morning, AAOx4, able to make needs known, screaming about not being able to breathe. PRN inhaler administered, HOB raised, proven effective. Pt c/o nausea, upset stomach, gas, and Coates catheter pain. Mylicon, Maalox, Zofran, and Tylenol PRN medication administered. Routine medications including antibiotics, administered. New Coates catheter 18 christiane inserted, due to leaking. Pt appears to be unaware of pushing FC out. Pt seen by MD, infection status and transfer to CCU discussed. Call light within reach. Bed in locked and lowest position. Will continue to monitor.
--- NOTE | 2019-09-03 13:58 | NUR ---
Pt received this morning, AAOx4, able to make needs known, screaming about not being able to breathe. PRN inhaler administered, HOB raised, proven effective. Pt c/o nausea, upset stomach, gas, and Coates catheter pain. Mylicon, Maalox, Zofran, and Tylenol PRN medication administered. Routine medications including antibiotics, administered. New Coates catheter 18 christiane inserted. Pt appears to be unaware of pushing FC out. Pt seen by MD, infection status and transfer to CCU discussed. Call light within reach. Bed in locked and lowest position. Report given to Bryson KELSEY. Will continue to monitor.
--- NOTE | 2019-09-03 13:59 | NUR ---
Full telephone SBAR report received by LAURE Steele.
--- NOTE | 2019-09-03 14:29 | NUR ---
Pt safely transferred to bed 5 in CCU via bed. Sister, Siri, updated. Referral Manager notified.
--- NOTE | 2019-09-03 14:30 | NUR ---
Pt received from 2nd floor #[id number] and transferred to CCU. Pt A&Ox4. VSS wnl on 3L NC. Pt stable and nad noted upon transfer. Oriented pt to room and call light. Pt verbalized understanding.
--- NOTE | 2019-09-03 20:00 | NUR ---
RECEIVED PT. VERY AGITATED & VERBALLY ABUSIVE, CALLED DR BURNETT FOR ORDER, ATIVAN 1MG PO GIVEN. ON O2 @ 3L NC W/ O2 SAT OF 92%. HEP LOCK INTACT ON LFA INTACT & PATENT. C-SCOPE STACH BP STABLE.
[2019-09-03] MEDS: LORAZEPAM 1 MG TABLET PO PRN (20:17)
[2019-09-03] MEDS: ropiniROLE 0.5 MG TABLET PO SCH (20:25)
[2019-09-03] MEDS: LATANOPROST OPHT DROP 2.5 ML BOTTLE EACHEYE SCH (20:30)
[2019-09-03] MEDS: DOCUSATE SODIUM 100 MG CAPSULE PO SCH (20:31)
[2019-09-03] MEDS ORDERED: MEROPENEM 1 G in IV NORMAL SALINE 100 ML IV ONE (21:00)
[2019-09-03] MEDS ORDERED: MEROPENEM 1 G in IV NORMAL SALINE 100 ML IV SCH (21:00)
--- NOTE | 2019-09-03 21:00 | NUR ---
HS CARE DONE. REPOSITIONED W/ HOB ELEVATED.
[2019-09-03] MEDS ORDERED: VANCOMYCIN IV 2,000 MG in IV NORMAL SALINE 500 ML IV ONE (21:15)
[2019-09-03] MEDS ORDERED: VANCOMYCIN 1000 MG VIAL ONE (22:27)
[2019-09-03] MEDS ORDERED: MEROPENEM 1 G VIAL IV ONE (22:27)
[2019-09-04] VITALS (23 sets, daily range): BP systolic 89–178; BP diastolic 38–99
[2019-09-04] MEDS: METOPROLOL TARTRATE 50 MG TABLET PO SCH ×3 (00:53→20:10)
[2019-09-04] MEDS ORDERED: METOPROLOL TARTRATE 5 MG/5 ML VIAL IVP ONE (01:00)
[2019-09-04] MEDS ORDERED: METOPROLOL TARTRATE 5 MG/5 ML VIAL IVP PRN (01:00)
[2019-09-04] MEDS: LORAZEPAM 1 MG TABLET PO PRN (03:11)
[2019-09-04] MEDS: ONDANSETRON 4 MG/2 ML VIAL IV PRN (03:44)
--- NOTE | 2019-09-04 03:44 | NUR ---
C/O NAUSEA, MEDICATED W/ ZOFRAN 4MG IVP.
--- NOTE | 2019-09-04 04:05 | NUR ---
AM CARE DONE. HAD BM. REPOSITIONED W/ HOB ELEVATED.
[2019-09-04 05:55] LABS: BASOPHILS % (AUTO) 0.1 % (0.0-2.0); HEMOGLOBIN 12.1 g/dL (10.9-14.3); LYMPHOCYTES # (AUTO) 0.4 K/uL (20.0-40.0); MONOCYTES # (AUTO) 0.3 K/uL (2.0-10.0); NEUTROPHILS # (AUTO) 1.1 K/uL (1.8-8.9); PLATELET COUNT (AUTO) 77 K/uL (179-408)
[2019-09-04 05:57] LABS: HEMATOCRIT 36.7 % (31.2-41.9); MEAN CORPUSCULAR HEMOGLOBIN 29.7 uug (24.7-32.8); MEAN CORPUSCULAR HGB CONC 33 g/dL (32.3-35.6); MEAN CORPUSCULAR VOLUME 90.1 fL (75.5-95.3); MONOCYTES % (AUTO) 17.3 % (0.0-11.0); NEUTROPHILS % (AUTO) 62.6 % (38.5-71.5); RED BLOOD CELL COUNT(AUTO) 4.08 MIL/uL (3.63-4.92)
[2019-09-04 06:11] LABS: BILIRUBIN,TOTAL 0.2 mg/dL (0.2-1.0); CREATININE 0.7 mg/dL (0.6-1.3); MAGNESIUM 2.2 mg/dL (1.8-2.4); PHOSPHOROUS 3.2 mg/dL (2.5-4.9); POTASSIUM 4.7 mmol/L (3.5-5.1); TOTAL PROTEIN, SERUM 6.2 g/dL (6.4-8.2)
[2019-09-04 06:15] LABS: FERRITIN 191 ng/mL (8-252); LACTATE DEHYDROGENASE 275 U/L (81-234)
[2019-09-04 06:21] LABS: WHITE BLOOD COUNT (AUTO) 1.8 K/uL (3.8-11.8)
[2019-09-04] MEDS: risperiDONE 1 MG TABLET PO SCH ×4 (08:00→20:15)
[2019-09-04 08:06] LABS: LYMPHOCYTES % (MANUAL) 17 % (20-40); MONOCYTES % (MANUAL) 11 % (2-10); NEUTROPHILS % (MANUAL) 72 % (42-75)
[2019-09-04 08:07] LABS: ABG BASE EXCESS 5.9 mmol/L; ABG HCO3 35.5 mmol/L; ABG PCO2 80.2 mmHg (35.0-45.0); ABG PH 7.264 (7.350-7.450); ABG SITE RIGHT RADIAL; ABG TOTAL HEMOGLOBIN 12.6 G/dL (12.0-16.0); COHb 1.4 % (0.5-1.5); MetHb 0.3 % (0.0-1.5); O2Hb 85.4 % (94.0-97.0); VENT MODE Nasal Cannula
--- NOTE | 2019-09-04 08:19 | NUR ---
Dr. Cedillo here to see pt. Full report given. New orders received.
[2019-09-04] MEDS: DIAZEPAM 5 MG TABLET PO SCH (08:50)
[2019-09-04] MEDS: FLUOXETINE HCL 20 MG CAPSULE PO SCH (08:50)
[2019-09-04] MEDS: AMLODIPINE 10 MG TABLET PO SCH (08:51)
[2019-09-04] MEDS ORDERED: MEROPENEM 1 G in IV NORMAL SALINE 100 ML IV ONE ×2 (09:00→09:45)
[2019-09-04] MEDS: CULTURELLE CAPSULE PO SCH ×2 (10:20→20:11)
[2019-09-04] MEDS: GABAPENTIN 100 MG CAPSULE PO SCH ×2 (10:20→16:18)
[2019-09-04] MEDS: PANTOPRAZOLE SODIUM 40 MG TABLET.DR PO SCH (10:20)
[2019-09-04] MEDS: MULTIVITAMINS,THERAPEUTIC TABLET PO SCH ×2 (10:20→16:18)
[2019-09-04] MEDS: FUROSEMIDE 20 MG TABLET PO SCH (10:20)
[2019-09-04] MEDS: HYDROXYCHLOROQUINE SULFATE 200 MG TABLET PO SCH ×2 (10:23→20:09)
[2019-09-04] MEDS: APIXABAN 5 MG TABLET PO SCH ×2 (10:25→20:14)
[2019-09-04] MEDS: VANCOMYCIN IV 1,500 MG in IV DEXTROSE 5% 500 ML IV SCH ×2 (11:20→20:01)
--- NOTE | 2019-09-04 12:14 | NUR ---
Clinical Pharmacy Note: Vancomycin Pharmacy to Dose Subjective: To start vancomycin in this 63 y/o female for indication of PNA. Patient also tested covid+ 08/31 Objective: weight 95kg height 165cm BUN/SCr 11/0.6 WBC 1.1 temp 98.5 2gm vanco x 1 given in ER 09/02 @ 7374 Assessment/Plan As renal function appears stable, will start vancomycin regimen of 1500mg q12hr for estimated trough of 15.43, first dose tonight at 0900. Will order trough before 4th scheduled dose (not ordered yet). Will continue to follow and adjust if renal function were to change as well. Will monitor
[2019-09-04] MEDS: MEROPENEM 1 G in IV NORMAL SALINE 100 ML IV SCH (16:16)
--- NOTE | 2019-09-04 19:30 | NUR ---
Report received. Patient obtunded, opens eyes half way to deep pain, doesn't follow commands. Sat 83-84% on 3 L NC; lips cyanotic. O2 changed to 6 L mask. Saturations improved. Wsqt=211.8 orally. Assessment done.
[2019-09-04] MEDS: ACETAMINOPHEN 325 MG TABLET PO PRN (19:54)
[2019-09-04] MEDS: MUPIROCIN 2% OINT 22 GM TUBE NS SCH (20:01)
[2019-09-04] MEDS: ropiniROLE 0.5 MG TABLET PO SCH (20:12)
[2019-09-04] MEDS: DOCUSATE SODIUM 100 MG CAPSULE PO SCH (20:16)
--- NOTE | 2019-09-04 20:30 | NUR ---
Cooling measures done. Tylenol tabs and other po meds crushed and given with apple sauce. HOB elevated above 30 degrees.
[2019-09-04] MEDS: LATANOPROST OPHT DROP 2.5 ML BOTTLE EACHEYE SCH (21:13)
[2019-09-05] VITALS (25 sets, daily range): BP systolic 89–137; BP diastolic 54–106
--- NOTE | 2019-09-05 | NUR ---
Remains obtunded. Respirations gasping, shallow, but sat remains above 94%.
[2019-09-05] MEDS: MEROPENEM 1 G in IV NORMAL SALINE 100 ML IV SCH ×3 (00:19→16:06)
--- NOTE | 2019-09-05 00:30 | NUR ---
Spoke to Tony Maynoranival listed as brother #[phone] claims he is the DPOA, code status discussed. Confirmed DNR and DNI, no ventilator as per Tony. Telephone conversation confirmed by Bryson KELSEY.
--- NOTE | 2019-09-05 00:45 | NUR ---
Siri Mark called. Said she's the spoke person for the family and stated that the patient had talked to her and agreed to be put on a ventilator. ABGs ordered.
--- NOTE | 2019-09-05 01:00 | NUR ---
Spoke to Tony again #1 emergency contact and mentioned Siri's statement above. Tony is aware of patient's condition and insists on patient not being intubated and on the ventilator.
--- NOTE | 2019-09-05 01:30 | NUR ---
Nursing tool supervisor Zully here. Contacted Tony again to confirmed DNR/DNI and offered for him to come and see patient. But Tony stated "we have said our goodbye." Dr. Olivarez contacted. Order for DNR/DNI obtained. Stat ABGS cancelled.
[2019-09-05] MEDS: IV NORMAL SALINE 250 ML IV PRN (03:09)
[2019-09-05] MEDS: ACETAMINOPHEN 325 MG TABLET PO PRN (04:56)
[2019-09-05 05:25] LABS: CREATININE 0.5 mg/dL (0.6-1.3); MAGNESIUM 2.3 mg/dL (1.8-2.4); PHOSPHOROUS 3.8 mg/dL (2.5-4.9); POTASSIUM 4.5 mmol/L (3.5-5.1)
[2019-09-05 05:41] LABS: FERRITIN 211 ng/mL (8-252); LACTATE DEHYDROGENASE 289 U/L (81-234)
[2019-09-05 05:45] LABS: BASOPHILS % (AUTO) 0.1 % (0.0-2.0); HEMATOCRIT 37.8 % (31.2-41.9); HEMOGLOBIN 12.2 g/dL (10.9-14.3); LYMPHOCYTES # (AUTO) 0.2 K/uL (20.0-40.0); LYMPHOCYTES % (AUTO) 11.4 % (20.5-51.5); MEAN CORPUSCULAR HEMOGLOBIN 29.5 uug (24.7-32.8); MEAN CORPUSCULAR HGB CONC 32 g/dL (32.3-35.6); MEAN CORPUSCULAR VOLUME 91.1 fL (75.5-95.3); MONOCYTES # (AUTO) 0.3 K/uL (2.0-10.0); MONOCYTES % (AUTO) 13.5 % (0.0-11.0); NEUTROPHILS # (AUTO) 1.6 K/uL (1.8-8.9); PLATELET COUNT (AUTO) 89 K/uL (179-408); RED BLOOD CELL COUNT(AUTO) 4.15 MIL/uL (3.63-4.92); WHITE BLOOD COUNT (AUTO) 2.1 K/uL (3.8-11.8)
[2019-09-05 06:39] LABS: LYMPHOCYTES % (MANUAL) 11 % (20-40); MONOCYTES % (MANUAL) 13 % (2-10); NEUTROPHILS % (MANUAL) 76 % (42-75)
[2019-09-05 06:54] LABS: ABG BASE EXCESS 5.8 mmol/L; ABG HCO3 37.3 mmol/L; ABG PCO2 99.1 mmHg (35.0-45.0); ABG PH 7.193 (7.350-7.450); ABG SITE RIGHT RADIAL; ABG TOTAL HEMOGLOBIN 12.7 G/dL (12.0-16.0); COHb 1.6 % (0.5-1.5); MetHb 0.3 % (0.0-1.5); O2Hb 92.5 % (94.0-97.0)
--- NOTE | 2019-09-05 07:30 | NUR ---
DR PAUL IN THE STATION TO SEE PATIENT. PLEASE REFER TO ORDER HISTORY FOR NEW ORDERS.
[2019-09-05] MEDS ORDERED: IPRATROPIUM/ALBUTEROL SULFATE 14.7 GM INHALER INH SCH (08:15)
[2019-09-05] MEDS: PANTOPRAZOLE SODIUM 40 MG TABLET.DR PO SCH (08:24)
[2019-09-05] MEDS: MULTIVITAMINS,THERAPEUTIC TABLET PO SCH ×2 (08:24→16:09)
[2019-09-05] MEDS: GABAPENTIN 100 MG CAPSULE PO SCH ×2 (08:24→16:09)
[2019-09-05] MEDS: FUROSEMIDE 20 MG TABLET PO SCH (08:24)
[2019-09-05] MEDS: HYDROXYCHLOROQUINE SULFATE 200 MG TABLET PO SCH ×2 (08:24→20:49)
[2019-09-05] MEDS: CULTURELLE CAPSULE PO SCH ×2 (08:24→20:48)
[2019-09-05] MEDS: APIXABAN 5 MG TABLET PO SCH ×2 (08:26→21:35)
[2019-09-05] MEDS: DIAZEPAM 5 MG TABLET PO SCH (09:00)
[2019-09-05] MEDS: FLUOXETINE HCL 20 MG CAPSULE PO SCH (09:00)
[2019-09-05] MEDS: METOPROLOL TARTRATE 50 MG TABLET PO SCH ×2 (09:00→20:59)
[2019-09-05] MEDS: MUPIROCIN 2% OINT 22 GM TUBE NS SCH ×2 (09:00→20:48)
[2019-09-05] MEDS: risperiDONE 1 MG TABLET PO SCH ×4 (09:00→20:49)
--- NOTE | 2019-09-05 09:00 | NUR ---
PATIENT STILL ABLE TO SWALLOW PO MEDICATIONS THIS MORNING CRUSHED IN PUDDING
--- NOTE | 2019-09-05 09:00 | NUR ---
DOCTOR TEDDY IN THE UNIT TO SEE PATIENT. INFORMED THAT PATIENT HAD A FEW EPISODES OF HYPOTENSION AND BP MEDS WERE HELD THIS MORNING. PATIENT REMAINS LETHARGIC OVER NIGHT.
--- NOTE | 2019-09-05 09:19 | NUR ---
Clinical Pharmacy Note: Vancomycin Pharmacy to Dose Subjective: To continue vancomycin in this 63 y/o female for indication of PNA. Patient also tested covid+ 08/31 Objective: weight 95kg height 165cm BUN/SCr 12/0.5 WBC 2.1 temp 100 Assessment/Plan Will continue same dose of vancomycin regimen of 1500mg IVPB q12hr for estimated trough of 15mcg/ml at steady state. 3rd dose today at 0900. Will order trough before 4th scheduled dose (ordered for 09/04 at 2029- RN has been informed to hold 2100 dose if vanco trough level above 20 mcg/ml). Will continue to follow and adjust if renal function were to change as well. Will monitor
[2019-09-05] MEDS: VANCOMYCIN IV 1,500 MG in IV DEXTROSE 5% 500 ML IV SCH ×2 (09:28→21:47)
--- NOTE | 2019-09-05 10:00 | NUR ---
SISTER MARIBELL AND SON CALLED FOR PATIENT. ARRANGED FOR SON TO COME SEE PATIENT THIS AFTERNOON.
[2019-09-05] MEDS ORDERED: IPRATROPIUM BROMIDE 12.9 GM INHALER INH ONE (11:03)
--- NOTE | 2019-09-05 11:40 | NUR ---
DOCTOR HORTENCIA IN THE UNIT TO SEE PATIENT. INFORMED THAT FAMILY IS COMING TO SEE THE PATIENT. NGT CAN BE INSERTED IF NEEDED. PATIENT BECOMING MORE LETHARGIC
[2019-09-05] MEDS: ALBUTEROL SULFATE 8 GM HFA.AER.AD IH SCH ×3 (13:00→21:00)
[2019-09-05] MEDS: IPRATROPIUM BROMIDE IH SCH ×3 (13:00→20:55)
--- NOTE | 2019-09-05 14:37 | NUR ---
Informed DR. BURNETT THAT PATIENT IS ALERT AND ABLE TO VERBALIZE THAT SHE WANTS THE BREATHING MACHINE. ASKED IF SHE IS SURE THAT SHE WANTS TO HAVE A TUBE INSERTED THROUGH HER MOUTH AND THROAT AND HOOKED IN ON THE MACHINE. SHE STATED YES SHE WANTS IT AND SHE STATES THAT SHE CAN NOT BREATH. DOCTOR HORTENCIA TO INFORM DOCTOR PAUL REGARDING STATE OF DECISION MAKING TO REVERSE DNI.
--- NOTE | 2019-09-05 15:40 | NUR ---
DOCTOR PAUL CALLED INFORMED OF DECISION PATIENT HAS STATED THAT SHE IS REQUESTING A BREATHING MACHINE TO HELP HER BREATH. SHE HAS DOCUMENTED DNR AND HAS A POWER OF VALIDATION MANAGER THAT CONFIRMS DNR/DNI, HOWEVER SHE IS VERBALIZING AND IS ALERT TO SAY THAT SHE CAN NOT BREATH AND SHE WANTS THE MACHINE TO LET HER BREATH. AND HAS REASSERTED HER WISHES WITH OTHER STAFF MEMBERS. DOCTOR PAUL REVERSED CODE STATUS TO INTUBATE PATIENT IF NEEDS BE. INFORMED THAT HER BREATHING IS VERY LABORED.
[2019-09-05] MEDS ORDERED: ETOMIDATE 20 MG/10 ML VIAL IV ONE ×2 (16:00→17:45)
[2019-09-05] MEDS ORDERED: SUCCINYLCHOLINE CHLORIDE 200 MG/10 ML VIAL IV ONE ×2 (16:00→17:45)
[2019-09-05] MEDS: methylPREDNISolone SOD SUCC 40 MG/ML VIAL IV SCH (16:01)
--- NOTE | 2019-09-05 17:05 | NUR ---
patient intubated at this time by dr anne. patient reconfirmed with patient if she wants to be intubated nodding yes due to the previous dnr/dni code status.
--- NOTE | 2019-09-05 17:05 | NUR ---
PT INTUBATED BY EASILY USING GLIDE-SCOPE WITHOUT COMPLICATION. PPE USED. COLOR CHANGE ON END-TIDAL, BI-LATERAL BREATH SOUNDS OBSERVED. 7.5 ETT SECURED WITH ANCHOR-FAST @ 22CM AT THE LIP. VENT SETTINGS OF A/C 16, VT 550, 100% FIO2, AND PEEP +[address] TAMEZ. ALARMS ARE ON AND AUDIBLE. SPUTUM SPECIMEN COLLECTED. PT IS TOLERATING VENT WELL, NO RESP. DISTRESS NOTED. BVM AT BEDSIDE. VENT PLUGGED INTO RED OUTLET. WILL CONTINUE TO MONITOR.
[2019-09-05] MEDS: PROPOFOL 100 ML IV PRN ×4 (17:15→22:01)
[2019-09-05] MEDS ORDERED: NOREPINEPHRINE BITARTRATE 8 MG in IV NORMAL SALINE 242 ML IV PRN (17:15)
--- NOTE | 2019-09-05 17:15 | NUR ---
patient intubated with 7.5 at 22cm, ac 16, fio2 100%, tv 550, peep 5
[2019-09-05] MEDS ORDERED: PROPOFOL 100 ML IV ONE (17:39)
[2019-09-05] MEDS ORDERED: PROPOFOL 200 MG/20 ML BOTTLE IV ONE (17:45)
[2019-09-05] MEDS ORDERED: PROPOFOL 100 ML IV PRN (18:15)
--- NOTE | 2019-09-05 19:00 | NUR ---
RECEIVED PT INTUBATED, ETT 7.5 SECURED AT 22 CM LIP LINE VIA ANCHOR FAST. SUCTION LAVAGE PRN. VENT CHECKED, ALARMS WORKING WELL AND AUDIBLE. PPE USED. NO VENT CHANGES MADE AT THIS TIME. WILL CONTINUE TO MONITOR.
--- NOTE | 2019-09-05 19:20 | NUR ---
Received patient in bed in semifowler's position. Patient was recently intubated @1705 and presents with a ETT #7.5 marked @22cm at the lips. Patient has a NG tube in the left nare placement confirmed by x-ray, no feeding on at this time. Patient is sedated with propofol running at 100mcg. 0.9% NS TKO @ 10ml/hr. F/C in place draining concentrated yellow urine. Plan of care is to titrate down the propofol as tolerated, get PICC line inserted, start tube feeding, and continue ventilator respiratory support. Vasopressors on order and standby in the event the patient decompensates and becomes hypotensive.
--- NOTE | 2019-09-05 19:30 | NUR ---
Spoke with the brother Tony and received verbal consent for PICC line insertion. Verbal consent witnessed by second RN.
[2019-09-05 19:31] LABS: ABG HCO3 30.9 mmol/L; ABG PCO2 58.4 mmHg (35.0-45.0); ABG PH 7.342 (7.350-7.450); ABG PO2 113.7 mmHg (75.0-100.0); ABG SITE RIGHT BRACHIAL; ABG TOTAL HEMOGLOBIN 11.7 G/dL (12.0-16.0); COHb 1.2 % (0.5-1.5); MetHb 0.3 % (0.0-1.5); O2Hb 97.3 % (94.0-97.0); VENT MODE VENT - A/C; VT, ABG 550 mL
--- NOTE | 2019-09-05 20:00 | NUR ---
production shift supervisor called and informed me that the nearest availability for PICC line insertion would be 09/06/2019 @0900. I expressed my concerns and they were noted.
[2019-09-05] MEDS: LATANOPROST OPHT DROP 2.5 ML BOTTLE EACHEYE SCH (20:40)
[2019-09-05] MEDS ORDERED: GLUCERNA 1.2 1000ML LIQUID GT PRN (20:45)
[2019-09-05] MEDS: DOCUSATE SODIUM 100 MG CAPSULE PO SCH (20:48)
[2019-09-05] MEDS: ropiniROLE 0.5 MG TABLET PO SCH (20:49)
[2019-09-06] VITALS (24 sets, daily range): BP systolic 96–130; BP diastolic 58–86
[2019-09-06] MEDS: PROPOFOL 100 ML IV PRN ×6 (00:20→21:18)
[2019-09-06] MEDS: methylPREDNISolone SOD SUCC 40 MG/ML VIAL IV SCH ×3 (00:28→21:01)
[2019-09-06] MEDS: MEROPENEM 1 G in IV NORMAL SALINE 100 ML IV SCH ×3 (02:15→17:26)
[2019-09-06 05:10] LABS: BASOPHILS % (AUTO) 0.1 % (0.0-2.0); HEMATOCRIT 33.7 % (31.2-41.9); HEMOGLOBIN 11.4 g/dL (10.9-14.3); LYMPHOCYTES # (AUTO) 0.2 K/uL (20.0-40.0); LYMPHOCYTES % (AUTO) 16.9 % (20.5-51.5); MEAN CORPUSCULAR HEMOGLOBIN 29.9 uug (24.7-32.8); MEAN CORPUSCULAR HGB CONC 34 g/dL (32.3-35.6); MEAN CORPUSCULAR VOLUME 88.9 fL (75.5-95.3); MONOCYTES # (AUTO) 0.2 K/uL (2.0-10.0); MONOCYTES % (AUTO) 14.1 % (0.0-11.0); NEUTROPHILS # (AUTO) 0.9 K/uL (1.8-8.9); NEUTROPHILS % (AUTO) 68.9 % (38.5-71.5); PLATELET COUNT (AUTO) 91 K/uL (179-408)
[2019-09-06 05:13] LABS: WHITE BLOOD COUNT (AUTO) 1.3 K/uL (3.8-11.8)
[2019-09-06 05:16] LABS: CREATININE 0.5 mg/dL (0.6-1.3); MAGNESIUM 2.2 mg/dL (1.8-2.4); PHOSPHOROUS 2.3 mg/dL (2.5-4.9)
[2019-09-06 06:03] LABS: FERRITIN 188 ng/mL (8-252); LACTATE DEHYDROGENASE 290 U/L (81-234)
[2019-09-06 06:12] LABS: ABG BASE EXCESS 8.9 mmol/L; ABG HCO3 35.5 mmol/L; ABG PCO2 58.5 mmHg (35.0-45.0); ABG PH 7.401 (7.350-7.450); ABG PO2 222.4 mmHg (75.0-100.0); ABG SITE RIGHT BRACHIAL; ABG TOTAL HEMOGLOBIN 11.9 G/dL (12.0-16.0); COHb 0.8 % (0.5-1.5); MetHb 0.3 % (0.0-1.5); O2Hb 98.8 % (94.0-97.0); VENT MODE VENT - A/C; VT, ABG 550 mL
[2019-09-06] MEDS: IPRATROPIUM BROMIDE IH SCH ×5 (08:21→23:30)
[2019-09-06] MEDS: ALBUTEROL SULFATE 8 GM HFA.AER.AD IH SCH (08:25)
[2019-09-06] MEDS: CULTURELLE CAPSULE PO SCH (08:26)
[2019-09-06] MEDS: MUPIROCIN 2% OINT 22 GM TUBE NS SCH ×2 (08:26→21:08)
[2019-09-06] MEDS: FUROSEMIDE 20 MG TABLET PO SCH (08:27)
[2019-09-06] MEDS: METOPROLOL TARTRATE 50 MG TABLET PO SCH (08:30)
[2019-09-06] MEDS: PANTOPRAZOLE SODIUM 40 MG TABLET.DR PO SCH (08:31)
[2019-09-06] MEDS: FLUOXETINE HCL 20 MG CAPSULE PO SCH (08:31)
[2019-09-06] MEDS: GABAPENTIN 100 MG CAPSULE PO SCH (08:31)
[2019-09-06] MEDS: risperiDONE 1 MG TABLET PO SCH (08:31)
[2019-09-06] MEDS: HYDROXYCHLOROQUINE SULFATE 200 MG TABLET PO SCH (08:31)
[2019-09-06] MEDS: MULTIVITAMINS,THERAPEUTIC TABLET PO SCH (08:32)
[2019-09-06] MEDS: DIAZEPAM 5 MG TABLET PO SCH (08:32)
[2019-09-06 08:49] LABS: BAND % (MANUAL) 1 % (0-10); LYMPHOCYTES % (MANUAL) 20 % (20-40); MONOCYTES % (MANUAL) 11 % (2-10); NEUTROPHILS % (MANUAL) 68 % (42-75)
[2019-09-06] MEDS ORDERED: ASCORBIC ACID 500 MG TABLET GT SCH (09:00)
[2019-09-06] MEDS ORDERED: PROTEIN SUPPLEMENT (PROSTAT) 30 ML LIQUID GT SCH (09:00)
[2019-09-06] MEDS ORDERED: ZINC SULFATE 220 MG CAPSULE GT SCH (09:00)
[2019-09-06] MEDS ORDERED: CHOLECALCIFEROL 1,000 UNIT TABLET GT SCH (09:00)
[2019-09-06] MEDS: VANCOMYCIN IV 1,500 MG in IV DEXTROSE 5% 500 ML IV SCH ×2 (09:08→21:10)
[2019-09-06] MEDS: APIXABAN 5 MG TABLET PO SCH (09:26)
--- NOTE | 2019-09-06 09:54 | NUR ---
Clinical Pharmacy Note: Vancomycin Pharmacy to Dose Subjective: To continue vancomycin in this 63 y/o female for indication of PNA. Patient also tested covid+ 08/31 Objective: weight 95kg height 165cm BUN/SCr 18/0.5 WBC 1.3 temp 98.6 Vanco trough level on 09/04 at 2030: 15 Assessment/Plan Since vanco trough level is within therapeutic range, will continue same dose of vancomycin regimen of 1500mg IVPB q12hr for today. Will continue to follow and adjust the dose and/repeat the level, if renal function were to change as well. Will monitor
[2019-09-06] MEDS ORDERED: BACLOFEN 10 MG TABLET NG PRN (11:14)
[2019-09-06] MEDS ORDERED: PROTEIN SUPPLEMENT (PROSTAT) 30 ML LIQUID NG SCH (11:15)
[2019-09-06] MEDS ORDERED: SIMETHICONE 80 MG TAB.CHEW NG PRN (11:16)
[2019-09-06] MEDS ORDERED: GLUCERNA 1.2 1000ML LIQUID NG PRN (11:16)
[2019-09-06] MEDS ORDERED: FUROSEMIDE 20 MG TABLET NG SCH (11:16)
[2019-09-06] MEDS ORDERED: MELATONIN 3 MG TABLET NG PRN (11:16)
[2019-09-06] MEDS ORDERED: MULTIVITAMINS,THERAPEUTIC TABLET NG SCH (11:17)
[2019-09-06] MEDS ORDERED: MAG HYDROX/AL HYDROX/SIMETH 30 ML LIQUID UDC NG PRN (11:19)
--- NOTE | 2019-09-06 11:25 | NUR ---
WOUND CARE CONSULT: REVIEWED CHART AND NURSING DOCUMENTATION. PER RN THERE IS BLANCHABLE REDNESS TO SACRUM. RECOMMENDATIONS MADE FOR SKIN PROTECTION AND DISCUSSED WITH NURSING STAFF. CURRENT ALAN SCORE IS 13. FIRST STEP LOW AIRLOSS MATTRESS ON ORDER. WILL SEE PRN.
[2019-09-06] MEDS: risperiDONE 1 MG TABLET NG SCH ×3 (14:10→21:07)
[2019-09-06] MEDS: PROTEIN SUPPLEMENT (PROSTAT) 30 ML LIQUID NG SCH ×2 (14:10→21:08)
[2019-09-06] MEDS ORDERED: ACETAMINOPHEN 325 MG TABLET NG PRN (14:36)
[2019-09-06] MEDS ORDERED: NEUTRA PHOS PACKET NG ONE (16:00)
[2019-09-06] MEDS: GABAPENTIN 100 MG CAPSULE NG SCH (17:55)
[2019-09-06] MEDS ORDERED: TBO-FILGRASTIM 480 MCG/0.8 ML SYRINGE SQ SCH (18:15)
[2019-09-06] MEDS: LATANOPROST OPHT DROP 2.5 ML BOTTLE EACHEYE SCH (20:59)
[2019-09-06] MEDS: CULTURELLE CAPSULE NG SCH (20:59)
[2019-09-06] MEDS: METOPROLOL TARTRATE 25 MG TABLET NG SCH (21:00)
[2019-09-06] MEDS ORDERED: METOPROLOL TARTRATE 50 MG TABLET PO SCH (21:00)
[2019-09-06] MEDS: ropiniROLE 0.5 MG TABLET NG SCH (21:07)
[2019-09-06] MEDS: DOCUSATE SODIUM 100 MG/10 ML LIQUID UDC NG SCH (21:10)
[2019-09-06] MEDS: APIXABAN 5 MG TABLET NG SCH (21:12)
[2019-09-07] VITALS (28 sets, daily range): BP systolic 88–120; BP diastolic 42–79
[2019-09-07] MEDS: PROPOFOL 100 ML IV PRN ×10 (00:20→21:39)
[2019-09-07] MEDS: MEROPENEM 1 G in IV NORMAL SALINE 100 ML IV SCH ×3 (00:33→16:49)
[2019-09-07] MEDS: IPRATROPIUM BROMIDE IH SCH ×6 (03:02→23:59)
--- NOTE | 2019-09-07 03:15 | NUR ---
PT ON CONT MELO VENT WITH 7.5 ET/TUBE IN PLACE, 22CM LIPLINE, PT TEDS TO BREATH RAPID AT TIMES, GOOD COUGH EFFORT, SUCTIONED BLOODY TINGE SECRETIONS AT TIMES, SUCTION MOUTH WITH JAMES MOORE, ALL VENT ALARMS OK, CHANGE HME AND FILTER, NO VENT CHANGES MADE, ABG IN AM , MDI GIVEN ALB/ATR. JAMES NOBLES, PPE USED .Se BENJAMINP Addendum: 09/07/19 at 0318 by MARIA E FUCHS RT Amended: Links added.
[2019-09-07 05:10] LABS: BASOPHILS % (AUTO) 0.1 % (0.0-2.0); HEMATOCRIT 31.1 % (31.2-41.9); HEMOGLOBIN 10.6 g/dL (10.9-14.3); LYMPHOCYTES # (AUTO) 0.2 K/uL (20.0-40.0); LYMPHOCYTES % (AUTO) 2.4 % (20.5-51.5); MEAN CORPUSCULAR HEMOGLOBIN 30.3 uug (24.7-32.8); MEAN CORPUSCULAR HGB CONC 34 g/dL (32.3-35.6); MEAN CORPUSCULAR VOLUME 89.2 fL (75.5-95.3); MONOCYTES # (AUTO) 0.5 K/uL (2.0-10.0); NEUTROPHILS # (AUTO) 7.7 K/uL (1.8-8.9); NEUTROPHILS % (AUTO) 91.5 % (38.5-71.5); PLATELET COUNT (AUTO) 113 K/uL (179-408); RED BLOOD CELL COUNT(AUTO) 3.49 MIL/uL (3.63-4.92); WHITE BLOOD COUNT (AUTO) 8.4 K/uL (3.8-11.8)
[2019-09-07 05:41] LABS: THYROID STIMULATING HORMONE 0.467 mIU/mL (0.358-3.740)
[2019-09-07 05:56] LABS: BILIRUBIN,TOTAL 0.4 mg/dL (0.2-1.0); CREATININE 0.7 mg/dL (0.6-1.3); MAGNESIUM 2.3 mg/dL (1.8-2.4); PHOSPHOROUS 2.1 mg/dL (2.5-4.9); POTASSIUM 3.9 mmol/L (3.5-5.1); TOTAL PROTEIN, SERUM 5.6 g/dL (6.4-8.2)
[2019-09-07 06:18] LABS: ABG BASE EXCESS 8.8 mmol/L; ABG HCO3 33.8 mmol/L; ABG PCO2 48.8 mmHg (35.0-45.0); ABG PH 7.459 (7.350-7.450); ABG PO2 82.8 mmHg (75.0-100.0); ABG SITE LEFT RADIAL; ABG TOTAL HEMOGLOBIN 11.7 G/dL (12.0-16.0); COHb 0.7 % (0.5-1.5); MetHb 0.3 % (0.0-1.5); O2Hb 96.1 % (94.0-97.0); VENT MODE VENT - A/C; VT, ABG 550 mL
--- NOTE | 2019-09-07 08:40 | NUR ---
Clinical Pharmacy Note: Vancomycin Pharmacy to Dose Subjective: To continue vancomycin in this 63 y/o female for indication of PNA. Patient also tested covid+ 08/31 Objective: weight 95kg height 165cm BUN/SCr 23/0.7 WBC 8.4 temp 99.4 Vanco trough level on 09/04 at 2030: 15 Assessment/Plan Srcr/BUN slightly increased, will repeat vanco trough level tomorrow at 0830. Will continue same dose of vancomycin regimen of 1500mg IVPB q12hr for today. Pharmacy will review the level in am & adjust the dose if needed. Will monitor
[2019-09-07] MEDS: ZINC SULFATE 220 MG CAPSULE NG SCH (08:43)
[2019-09-07] MEDS: GABAPENTIN 100 MG CAPSULE NG SCH ×2 (08:43→16:55)
[2019-09-07] MEDS: methylPREDNISolone SOD SUCC 40 MG/ML VIAL IV SCH ×2 (08:43→20:15)
[2019-09-07] MEDS: PANTOPRAZOLE ORAL SUSPENSION 40 MG SUSPDR.PKT NG SCH (08:43)
[2019-09-07] MEDS: CULTURELLE CAPSULE NG SCH ×2 (08:44→20:15)
[2019-09-07] MEDS: ASCORBIC ACID 500 MG TABLET NG SCH (08:44)
[2019-09-07] MEDS: METOPROLOL TARTRATE 25 MG TABLET NG SCH (08:46)
[2019-09-07] MEDS: PROTEIN SUPPLEMENT (PROSTAT) 30 ML LIQUID NG SCH ×3 (08:49→20:12)
[2019-09-07] MEDS: VANCOMYCIN IV 1,500 MG in IV DEXTROSE 5% 500 ML IV SCH ×2 (08:50→20:17)
[2019-09-07] MEDS: APIXABAN 5 MG TABLET NG SCH ×2 (08:53→20:13)
[2019-09-07] MEDS: FLUOXETINE HCL 20 MG CAPSULE NG SCH (09:11)
[2019-09-07] MEDS: CHOLECALCIFEROL 1,000 UNIT TABLET NG SCH (09:11)
[2019-09-07] MEDS: MUPIROCIN 2% OINT 22 GM TUBE NS SCH ×2 (09:15→20:14)
[2019-09-07] MEDS: DIAZEPAM 5 MG TABLET NG SCH (09:20)
[2019-09-07] MEDS: risperiDONE 1 MG TABLET NG SCH ×4 (09:29→20:11)
[2019-09-07] MEDS ORDERED: POTASSIUM PHOSPHATE MM 15 MMOL in IV NORMAL SALINE 250 ML IV ONE (10:00)
--- NOTE | 2019-09-07 16:30 | NUR ---
TEMP IS 99.1F. MEDICATED WITH TYLENOL 650MG VIA OGT.
--- NOTE | 2019-09-07 17:25 | NUR ---
PT REMAINS ORALLY INTUBATED ON FULL VENT SUPPORT. PT TOLERATING CURRENT VENT SETTINGS WELL, NO DISTRESS NOTED DURING SHIFT. PT SXN'D NEEDED, ORAL CARE PERFORMED, ETT SECURE AND PATENT, TUBE MOVED, NO SKIN BREAKDOWN NOTED. VENT ALARMS AUDIBLE, CHECKED AND RESET.
--- NOTE | 2019-09-07 18:30 | NUR ---
BP IS GOING UP ABOVE 120 SYSTOLIC. [id number] IS TURNED OFF AT THIS TIME. Addendum: 09/07/19 at 1905 by ANALISA LOAIZA RN [id number] NOTES IS MEANT FOR ANOTHER PATIENT
--- NOTE | 2019-09-07 19:35 | NUR ---
Pt received on continuous mechanical ventilation via 7.5 ETT secured at 22cm lip line. Pt is on Cantu vent with ordered settings of A/C-16, VT-550, PEEP+5, FIO2-70% Pt tolerating vent settings well, with no signs or symptoms of respiratory distress noted. ETT secured with AnchorFast device, good skin integrity noted to area of application. No skin tears or breakdown noted. ETT moved periodically per hospital policy. MDI treatments given as ordered, 4 puffs Q4 with Atrovent. Treatments tolerated well, with no adverse reactions noted. Sxn'd and lavaged as needed. Vent alarm parameters checked, on and audible. Vent plugged into red outlet. Bag/valve/mask at bedside. HME changed. Proper PPE used. Will continue to monitor.
--- NOTE | 2019-09-07 20:00 | NUR ---
Received patient orally intubated and to mechanical ventilator with same settings. Sat above 94%. On continuous Diprivan drip for sedation via ISMAEL PICC line. Assessment done and documented.
[2019-09-07] MEDS: ropiniROLE 0.5 MG TABLET NG SCH (20:11)
[2019-09-07] MEDS: DOCUSATE SODIUM 100 MG/10 ML LIQUID UDC NG SCH (20:15)
[2019-09-07] MEDS: LATANOPROST OPHT DROP 2.5 ML BOTTLE EACHEYE SCH (20:49)
--- NOTE | 2019-09-07 23:30 | NUR ---
FIO2 decreased to 60% per MD orders to Titrate for SpO2 88-92%. RN Rosamaria notified.
[2019-09-08] VITALS (29 sets, daily range): BP systolic 93–124; BP diastolic 52–86
[2019-09-08] MEDS: PROPOFOL 100 ML IV PRN ×11 (00:07→21:53)
[2019-09-08] MEDS: MEROPENEM 1 G in IV NORMAL SALINE 100 ML IV SCH ×3 (00:56→16:20)
[2019-09-08] MEDS: IV NORMAL SALINE 250 ML IV PRN (00:56)
[2019-09-08] MEDS: IPRATROPIUM BROMIDE IH SCH ×6 (04:17→23:13)
[2019-09-08 05:03] LABS: BASOPHILS % (AUTO) 0.1 % (0.0-2.0); HEMATOCRIT 32.9 % (31.2-41.9); HEMOGLOBIN 10.9 g/dL (10.9-14.3); LYMPHOCYTES # (AUTO) 0.3 K/uL (20.0-40.0); LYMPHOCYTES % (AUTO) 2.2 % (20.5-51.5); MEAN CORPUSCULAR HEMOGLOBIN 29.8 uug (24.7-32.8); MEAN CORPUSCULAR HGB CONC 33 g/dL (32.3-35.6); MEAN CORPUSCULAR VOLUME 89.8 fL (75.5-95.3); MONOCYTES # (AUTO) 0.4 K/uL (2.0-10.0); MONOCYTES % (AUTO) 3.6 % (0.0-11.0); NEUTROPHILS # (AUTO) 11.3 K/uL (1.8-8.9); NEUTROPHILS % (AUTO) 94.1 % (38.5-71.5); PLATELET COUNT (AUTO) 131 K/uL (179-408); RED BLOOD CELL COUNT(AUTO) 3.66 MIL/uL (3.63-4.92)
[2019-09-08 05:38] LABS: CREATININE 0.5 mg/dL (0.6-1.3); PHOSPHOROUS 3.2 mg/dL (2.5-4.9); POTASSIUM 3.8 mmol/L (3.5-5.1)
[2019-09-08 06:26] LABS: ABG BASE EXCESS 10.7 mmol/L; ABG HCO3 37.1 mmol/L; ABG PCO2 58.7 mmHg (35.0-45.0); ABG PH 7.419 (7.350-7.450); ABG PO2 65.8 mmHg (75.0-100.0); ABG SITE RIGHT RADIAL; ABG TOTAL HEMOGLOBIN 11.4 G/dL (12.0-16.0); COHb 0.8 % (0.5-1.5); MetHb 0.2 % (0.0-1.5); VENT MODE VENT - A/C; VT, ABG 550 mL
--- NOTE | 2019-09-08 07:00 | NUR ---
Remains on Diprivan drip at 70 mcg/kg/min. Isolation for COVID-19 maintained. With good urine output during the shift. Tolerating NGT feedings well; off [id number]. Addendum: 09/08/19 at 0700 by JUDITH AUGUST RN Amended: Links added.
[2019-09-08] MEDS: ALBUTEROL SULFATE IH PRN ×3 (07:50→14:34)
[2019-09-08] MEDS: ASCORBIC ACID 500 MG TABLET NG SCH (09:00)
[2019-09-08] MEDS: DIAZEPAM 5 MG TABLET NG SCH (09:00)
[2019-09-08] MEDS: GABAPENTIN 100 MG CAPSULE NG SCH ×2 (09:00→16:22)
[2019-09-08] MEDS: ZINC SULFATE 220 MG CAPSULE NG SCH (09:00)
[2019-09-08] MEDS: PANTOPRAZOLE ORAL SUSPENSION 40 MG SUSPDR.PKT NG SCH (09:00)
[2019-09-08] MEDS: CULTURELLE CAPSULE NG SCH ×2 (09:00→20:55)
[2019-09-08] MEDS: PROTEIN SUPPLEMENT (PROSTAT) 30 ML LIQUID NG SCH ×3 (09:01→20:57)
[2019-09-08] MEDS: methylPREDNISolone SOD SUCC 40 MG/ML VIAL IV SCH ×2 (09:01→20:55)
[2019-09-08] MEDS: APIXABAN 5 MG TABLET NG SCH ×2 (09:03→20:57)
[2019-09-08] MEDS: FLUOXETINE HCL 20 MG CAPSULE NG SCH (09:05)
[2019-09-08] MEDS: risperiDONE 1 MG TABLET NG SCH ×4 (09:08→20:56)
[2019-09-08] MEDS: CHOLECALCIFEROL 1,000 UNIT TABLET NG SCH (09:09)
[2019-09-08] MEDS: MUPIROCIN 2% OINT 22 GM TUBE NS SCH ×2 (09:10→20:58)
[2019-09-08] MEDS: VANCOMYCIN IV 1,500 MG in IV DEXTROSE 5% 500 ML IV SCH ×2 (09:42→20:55)
[2019-09-08] MEDS: GLUCERNA 1.2 1000ML LIQUID NG PRN (10:28)
--- NOTE | 2019-09-08 13:30 | NUR ---
Clinical Pharmacy Note: Vancomycin Pharmacy to Dose Subjective: To continue vancomycin in this 63 y/o female for indication of PNA. Patient also tested covid+ 08/31 Objective: weight 95kg height 165cm BUN/SCr 19/0.5 WBC 12 temp 98.7 Vanco trough level on 09/04 at 2030: 15 Vanco trough level today at 0850 (taken late, last dose given 1hr early): 13.6 Assessment/Plan Although SCr has reduced again today, level was ordered due to increased Scr yesterday. As last dose before trough was given early and trough taken late, level may be closer to 15 as previously was. Will continue for now and retake trough after next upcoming 4th dose. Trough will be due 09/08 @2029. Will endorse RN when closer to time. Will continue to monitor
--- NOTE | 2019-09-08 18:49 | NUR ---
Left patient in bed resting adequately sedated propofol running at 75mcg/kg/min. NG to goal feeding with no residuals. chris catheter to gravity with adequate urine output see I&O. Hemodinamically stable. No skin breakdown.
--- NOTE | 2019-09-08 19:20 | NUR ---
Received patient in bed in semifowler's position. Patient remains on the ventilator with a ETT #7.5 marked @22cm at the lips. Patient has a NG tube in the left nare placement running glucerna 1.2 @65ml/hr. Patient is sedated with propofol running at 75mcg. 0.9% NS TKO @ 10ml/hr. PICC line in the right upper arm. F/C in place draining concentrated yellow urine. Plan of care is to titrate down the propofol as tolerated and continue ventilator respiratory support.
--- NOTE | 2019-09-08 19:37 | NUR ---
Received pt orally intubated with 7.5 ETT~22cm at lip line, on Cantu vent with the following settings of AC-16, Vt-550, PEEP+5, FIO2-60%. Pt tachypneic. Airway care done, pt responded to physical stimuli. In-line MDI tx with 4 puffs of Atrovent given, pt tolerated well. HME, Sx Silva and Bacterial filter changed. Resus. bag at bedside. PPE used. Vent and alarms checked and reset.
[2019-09-08] MEDS: DOCUSATE SODIUM 100 MG/10 ML LIQUID UDC NG SCH (20:55)
[2019-09-08] MEDS: ropiniROLE 0.5 MG TABLET NG SCH (20:56)
[2019-09-08] MEDS: LATANOPROST OPHT DROP 2.5 ML BOTTLE EACHEYE SCH (20:58)
[2019-09-09] VITALS (24 sets, daily range): BP systolic 112–142; BP diastolic 63–93
[2019-09-09] MEDS: PROPOFOL 100 ML IV PRN ×10 (00:43→23:39)
[2019-09-09] MEDS: MEROPENEM 1 G in IV NORMAL SALINE 100 ML IV SCH ×3 (01:16→17:43)
[2019-09-09] MEDS: LORAZEPAM 1 MG TABLET NG PRN ×2 (01:53→23:33)
[2019-09-09] MEDS: IPRATROPIUM BROMIDE IH SCH ×6 (03:20→23:18)
[2019-09-09 05:10] LABS: CREATININE 0.6 mg/dL (0.6-1.3); PHOSPHOROUS 3.2 mg/dL (2.5-4.9); POTASSIUM 3.9 mmol/L (3.5-5.1)
[2019-09-09 05:13] LABS: EOSINOPHILS % (AUTO) 0.1 % (0.0-7.0); HEMATOCRIT 32.6 % (31.2-41.9); HEMOGLOBIN 10.9 g/dL (10.9-14.3); LYMPHOCYTES # (AUTO) 0.2 K/uL (20.0-40.0); LYMPHOCYTES % (AUTO) 2.7 % (20.5-51.5); MEAN CORPUSCULAR HGB CONC 33 g/dL (32.3-35.6); MONOCYTES # (AUTO) 0.3 K/uL (2.0-10.0); MONOCYTES % (AUTO) 3.7 % (0.0-11.0); NEUTROPHILS # (AUTO) 7.7 K/uL (1.8-8.9); NEUTROPHILS % (AUTO) 93.5 % (38.5-71.5); PLATELET COUNT (AUTO) 151 K/uL (179-408); RED BLOOD CELL COUNT(AUTO) 3.62 MIL/uL (3.63-4.92); WHITE BLOOD COUNT (AUTO) 8.2 K/uL (3.8-11.8)
[2019-09-09 07:37] LABS: ABG HCO3 37.7 mmol/L; ABG PCO2 61.2 mmHg (35.0-45.0); ABG PH 7.407 (7.350-7.450); ABG PO2 73.3 mmHg (75.0-100.0); ABG SITE RIGHT RADIAL; ABG TOTAL HEMOGLOBIN 11.2 G/dL (12.0-16.0); COHb 0.7 % (0.5-1.5); MetHb 0.3 % (0.0-1.5); O2Hb 93.6 % (94.0-97.0); VENT MODE VENT - A/C; VT, ABG 550 mL
--- NOTE | 2019-09-09 08:00 | NUR ---
Pulmonary services Dr. Cedillo in the unit, full report given to Dr. Cedillo. See order history for new orders. Dr. Cedillo at bedside assessing patient.
[2019-09-09 08:14] LABS: CANCER ANTIGEN 15-3 10.8 U/mL (0.0-25.0)
[2019-09-09] MEDS: CULTURELLE CAPSULE NG SCH ×2 (08:15→20:22)
[2019-09-09] MEDS: methylPREDNISolone SOD SUCC 40 MG/ML VIAL IV SCH ×2 (08:15→20:19)
[2019-09-09] MEDS: GABAPENTIN 100 MG CAPSULE NG SCH ×2 (08:16→17:37)
[2019-09-09] MEDS: APIXABAN 5 MG TABLET NG SCH ×2 (08:16→20:31)
[2019-09-09] MEDS: PROTEIN SUPPLEMENT (PROSTAT) 30 ML LIQUID NG SCH ×3 (08:17→20:27)
[2019-09-09] MEDS: ASCORBIC ACID 500 MG TABLET NG SCH (08:17)
[2019-09-09] MEDS: PANTOPRAZOLE ORAL SUSPENSION 40 MG SUSPDR.PKT NG SCH (08:17)
[2019-09-09] MEDS: CHOLECALCIFEROL 1,000 UNIT TABLET NG SCH (08:18)
[2019-09-09] MEDS: ZINC SULFATE 220 MG CAPSULE NG SCH (08:18)
[2019-09-09] MEDS: DIAZEPAM 5 MG TABLET NG SCH (08:18)
[2019-09-09] MEDS: MUPIROCIN 2% OINT 22 GM TUBE NS SCH (08:19)
[2019-09-09] MEDS: FLUOXETINE HCL 20 MG CAPSULE NG SCH (08:19)
[2019-09-09] MEDS: risperiDONE 1 MG TABLET NG SCH ×4 (08:19→20:24)
[2019-09-09] MEDS: VANCOMYCIN IV 1,500 MG in IV DEXTROSE 5% 500 ML IV SCH ×2 (09:51→20:21)
[2019-09-09] MEDS: ALBUTEROL SULFATE IH PRN ×2 (11:04→15:47)
[2019-09-09] MEDS: GLUCERNA 1.2 1000ML LIQUID NG PRN (11:07)
--- NOTE | 2019-09-09 13:30 | NUR ---
Clinical Pharmacy Note: Vancomycin Pharmacy to Dose Subjective: To continue vancomycin in this 63 y/o female for indication of PNA. Patient also tested covid+ 08/31 Objective: weight 95kg height 165cm BUN/SCr 21/0.6 WBC 8.2 temp 98.6 Vanco trough level on 09/04 at 2030: 15 Vanco trough level today at 0850 (taken late, last dose given 1hr early): 13.6 Vanco trough level pending tonight at 2029 Assessment/Plan As renal function remains about baseline, will continue current regimen of 1500mg q12h. Trough due tonight at 2029, RN endorsed to hold dose if were to result >20. Will check level in am and adjust as needed. Will follow
--- NOTE | 2019-09-09 14:32 | NUR ---
Cardiology services Dr. Gandhi in the unit, full report given to Dr. Gandhi. See order history for new orders.
--- NOTE | 2019-09-09 18:36 | NUR ---
Attending Md Dr. Vargas in the unit, full report given to Dr. Vargas. See order history for new orders.
[2019-09-09] MEDS: LATANOPROST OPHT DROP 2.5 ML BOTTLE EACHEYE SCH (20:19)
[2019-09-09] MEDS: DOCUSATE SODIUM 100 MG/10 ML LIQUID UDC NG SCH (20:22)
[2019-09-09] MEDS: ropiniROLE 0.5 MG TABLET NG SCH (20:23)
[2019-09-10] VITALS (24 sets, daily range): BP systolic 92–149; BP diastolic 53–87
[2019-09-10] MEDS: MEROPENEM 1 G in IV NORMAL SALINE 100 ML IV SCH ×3 (00:40→16:55)
[2019-09-10] MEDS: PROPOFOL 100 ML IV PRN ×10 (02:38→21:35)
[2019-09-10] MEDS: IPRATROPIUM BROMIDE IH SCH ×6 (03:16→23:32)
[2019-09-10 05:33] LABS: BASOPHILS % (AUTO) 0.1 % (0.0-2.0); EOSINOPHILS % (AUTO) 0.1 % (0.0-7.0); HEMATOCRIT 32.1 % (31.2-41.9); HEMOGLOBIN 10.4 g/dL (10.9-14.3); LYMPHOCYTES # (AUTO) 0.3 K/uL (20.0-40.0); LYMPHOCYTES % (AUTO) 6.8 % (20.5-51.5); MEAN CORPUSCULAR HEMOGLOBIN 29.5 uug (24.7-32.8); MEAN CORPUSCULAR HGB CONC 32 g/dL (32.3-35.6); MEAN CORPUSCULAR VOLUME 91.1 fL (75.5-95.3); MONOCYTES # (AUTO) 0.4 K/uL (2.0-10.0); MONOCYTES % (AUTO) 10.1 % (0.0-11.0); NEUTROPHILS # (AUTO) 3.2 K/uL (1.8-8.9); NEUTROPHILS % (AUTO) 82.9 % (38.5-71.5); PLATELET COUNT (AUTO) 171 K/uL (179-408); RED BLOOD CELL COUNT(AUTO) 3.52 MIL/uL (3.63-4.92); WHITE BLOOD COUNT (AUTO) 3.9 K/uL (3.8-11.8)
[2019-09-10 05:53] LABS: CREATININE 0.5 mg/dL (0.6-1.3); MAGNESIUM 2.2 mg/dL (1.8-2.4); PHOSPHOROUS 3.2 mg/dL (2.5-4.9)
[2019-09-10 06:44] LABS: ABG BASE EXCESS 11.4 mmol/L; ABG HCO3 37.9 mmol/L; ABG PCO2 59.7 mmHg (35.0-45.0); ABG PO2 83.7 mmHg (75.0-100.0); ABG SITE LEFT RADIAL; ABG TOTAL HEMOGLOBIN 11.4 G/dL (12.0-16.0); COHb 0.8 % (0.5-1.5); MetHb 0.3 % (0.0-1.5); O2Hb 95.6 % (94.0-97.0); VENT MODE VENT - A/C; VT, ABG 550 mL
--- NOTE | 2019-09-10 07:30 | NUR ---
DR PAUL IN THE UNIT TO SEE PATIENT. AWAITING FOR POSSIBLE TERMINAL EXTUBATION DECISION/DISCUSSION PER FAMILY.
[2019-09-10] MEDS: risperiDONE 1 MG TABLET NG SCH ×4 (08:11→21:20)
[2019-09-10] MEDS: FLUOXETINE HCL 20 MG CAPSULE NG SCH (08:12)
[2019-09-10] MEDS: CHOLECALCIFEROL 1,000 UNIT TABLET NG SCH (08:13)
[2019-09-10] MEDS: PROTEIN SUPPLEMENT (PROSTAT) 30 ML LIQUID NG SCH ×3 (08:14→21:00)
[2019-09-10] MEDS: GABAPENTIN 100 MG CAPSULE NG SCH ×2 (08:20→16:52)
[2019-09-10] MEDS: ZINC SULFATE 220 MG CAPSULE NG SCH (08:20)
[2019-09-10] MEDS: PANTOPRAZOLE ORAL SUSPENSION 40 MG SUSPDR.PKT NG SCH (08:20)
[2019-09-10] MEDS: methylPREDNISolone SOD SUCC 40 MG/ML VIAL IV SCH ×2 (08:21→21:28)
[2019-09-10] MEDS: CULTURELLE CAPSULE NG SCH ×2 (08:21→21:28)
[2019-09-10] MEDS: ASCORBIC ACID 500 MG TABLET NG SCH (08:21)
[2019-09-10] MEDS: DIAZEPAM 5 MG TABLET NG SCH (08:21)
[2019-09-10] MEDS: APIXABAN 5 MG TABLET NG SCH ×2 (08:23→21:22)
[2019-09-10] MEDS: ALBUTEROL SULFATE IH PRN (09:42)
[2019-09-10] MEDS: VANCOMYCIN IV 1,500 MG in IV DEXTROSE 5% 500 ML IV SCH ×2 (10:00→21:27)
--- NOTE | 2019-09-10 12:00 | NUR ---
DR ESPINAL IN THE UNIT. PLEASE REFER TO ORDER HISTORY FOR FURTHER ORDERS. DOCTOR ROBERTO NOTIFIED ME THAT FAMILY CONFERENCE REGARDING TERMINAL EXTUBATION AND DECISION IS PENDING.
--- NOTE | 2019-09-10 12:49 | NUR ---
Clinical Pharmacy Note: Vancomycin Pharmacy to Dose Subjective: To continue vancomycin in this 63 y/o female for indication of PNA. Patient also tested covid+ 08/31 Objective: weight 95kg height 165cm BUN/SCr 23/0.5 WBC 3.9 temp 98.9 Vanco trough level on 09/04 at 2030: 15 Vanco trough level / at 0850 (taken late, last dose given 1hr early): 13.6 Vanco trough level 09/09 at 0455 (measured on the am labs, 4 hrs early than next dose):14.2 Assessment/Plan As renal function remains about baseline, will continue current regimen of 1500mg q12h. Trough was due last night at 2030, RN endorsed to hold dose if were to result >20, but dose was given without trough. Another level was ordered for today at 0830 prior to 5th dose but patient's RN told lab to use am sample, ended up measuring trough 4 hrs earlier than designated time. Will order level again tonight at 2030 and endorse nurse to draw trough on time(wrote on label also). Didn't compute estimated trough using early draw formula since patient is obese(estimation of crcl is less accurate than non obese pt). Will follow the level for further dosing.
--- NOTE | 2019-09-10 14:00 | NUR ---
DOCTOR ROBERTO ALREADY SPOKE TO FAMILY AND ALREADY AGREED TO TERMINAL EXTUBATION A CALL BACK FROM FAMILY IS PENDING DUE TO SON TO COME VISIT BEFORE THE ARRANGEMENT IS MADE BY FAMILY ON WHEN EXTUBATION WILL BE DONE.
--- NOTE | 2019-09-10 18:21 | NUR ---
NO CALL FROM FAMILY YET FOR ANY COMFORT CARE YET.
[2019-09-10] MEDS: LATANOPROST OPHT DROP 2.5 ML BOTTLE EACHEYE SCH (21:00)
[2019-09-10] MEDS: ropiniROLE 0.5 MG TABLET NG SCH (21:21)
[2019-09-10] MEDS: LORAZEPAM 1 MG TABLET NG PRN (21:28)
[2019-09-10] MEDS: DOCUSATE SODIUM 100 MG/10 ML LIQUID UDC NG SCH (21:28)
--- NOTE | 2019-09-10 23:40 | NUR ---
PT ON CONT MELO VENT WITH 7.5 ET/TUBE IN PLACE AND SECURED, WITH SAME CURRENT VENT SETTINGS, PT DOES ASSIST AT TIMES, PT IS SEDATED ON DIPRIVAN, PTWAKES UP AT TIMES, SUCTIONED, CLEAN MOUTH, CHANGE NOGUERA AND HME, ALL VENT ALARMS GOOD, NO VENT CHANGES MADE, 4 PUFFS OF ATROVENT MDI, DONE. Se BENJAMINP Addendum: 09/10/19 at 2344 by MARIA E FUCHS RT Amended: Links added.
[2019-09-11] VITALS (24 sets, daily range): BP systolic 98–158; BP diastolic 56–94
[2019-09-11] MEDS: PROPOFOL 100 ML IV PRN ×10 (00:02→22:10)
[2019-09-11] MEDS: MEROPENEM 1 G in IV NORMAL SALINE 100 ML IV SCH ×3 (00:02→16:28)
[2019-09-11] MEDS: IV NORMAL SALINE 250 ML IV PRN (00:34)
[2019-09-11] MEDS: IPRATROPIUM BROMIDE IH SCH ×6 (03:38→23:33)
[2019-09-11 05:40] LABS: BASOPHILS % (AUTO) 0.2 % (0.0-2.0); EOSINOPHILS % (AUTO) 0.4 % (0.0-7.0); HEMATOCRIT 32.1 % (31.2-41.9); HEMOGLOBIN 10.3 g/dL (10.9-14.3); LYMPHOCYTES # (AUTO) 0.2 K/uL (20.0-40.0); LYMPHOCYTES % (AUTO) 8.1 % (20.5-51.5); MEAN CORPUSCULAR HEMOGLOBIN 29.4 uug (24.7-32.8); MEAN CORPUSCULAR HGB CONC 32 g/dL (32.3-35.6); MEAN CORPUSCULAR VOLUME 91.7 fL (75.5-95.3); MONOCYTES # (AUTO) 0.4 K/uL (2.0-10.0); MONOCYTES % (AUTO) 12.3 % (0.0-11.0); NEUTROPHILS # (AUTO) 2.4 K/uL (1.8-8.9); PLATELET COUNT (AUTO) 154 K/uL (179-408); WHITE BLOOD COUNT (AUTO) 3.1 K/uL (3.8-11.8)
[2019-09-11 05:53] LABS: CREATININE 0.5 mg/dL (0.6-1.3); PHOSPHOROUS 3.8 mg/dL (2.5-4.9)
[2019-09-11 06:19] LABS: BILIRUBIN,DIRECT 0.1 mg/dL (0.0-0.2); BILIRUBIN,TOTAL 0.3 mg/dL (0.2-1.0); TOTAL PROTEIN, SERUM 5.3 g/dL (6.4-8.2)
[2019-09-11] MEDS: VANCOMYCIN IV 1,500 MG in IV DEXTROSE 5% 500 ML IV SCH ×2 (07:15→17:22)
--- NOTE | 2019-09-11 07:30 | NUR ---
PT ON CONT MELO VENT WITH 7.5 ET/TUBE IN PLACE AND SECURED, WITH VENT SETTINGS A/C 16, fIO2 60%, TV 550, PEEP 5, PT IS SEDATED ON DIPRIVAN, SINUS SURAJ ON THE MOINTOR, AND HEMODYNAMICALLY STABLE. AIR MATTRESS INFLATED, SCD'S ON, BED IN LOW POSITOIN, AND SIDE RAILS UP X2. SAFETY ALARMS ON.
[2019-09-11 07:44] LABS: ABG BASE EXCESS 9.1 mmol/L; ABG HCO3 35.7 mmol/L; ABG PCO2 60.1 mmHg (35.0-45.0); ABG PH 7.392 (7.350-7.450); ABG PO2 79.6 mmHg (75.0-100.0); ABG SITE LEFT RADIAL; ABG TOTAL HEMOGLOBIN 10.9 G/dL (12.0-16.0); COHb 0.9 % (0.5-1.5); MetHb 0.3 % (0.0-1.5); O2Hb 93.9 % (94.0-97.0); VENT MODE VENT - A/C; VT, ABG 550 mL
[2019-09-11] MEDS: methylPREDNISolone SOD SUCC 40 MG/ML VIAL IV SCH ×2 (08:09→20:59)
[2019-09-11] MEDS: CULTURELLE CAPSULE NG SCH ×2 (08:10→20:59)
[2019-09-11] MEDS: PANTOPRAZOLE ORAL SUSPENSION 40 MG SUSPDR.PKT NG SCH (08:10)
[2019-09-11] MEDS: PROTEIN SUPPLEMENT (PROSTAT) 30 ML LIQUID NG SCH ×3 (08:10→21:05)
[2019-09-11] MEDS: GABAPENTIN 100 MG CAPSULE NG SCH ×2 (08:10→16:29)
[2019-09-11] MEDS: risperiDONE 1 MG TABLET NG SCH ×4 (08:11→21:06)
[2019-09-11] MEDS: FLUOXETINE HCL 20 MG CAPSULE NG SCH (08:11)
[2019-09-11] MEDS: DIAZEPAM 5 MG TABLET NG SCH (08:12)
[2019-09-11] MEDS: ASCORBIC ACID 500 MG TABLET NG SCH (08:12)
[2019-09-11] MEDS: ZINC SULFATE 220 MG CAPSULE NG SCH (08:13)
[2019-09-11] MEDS: BENZONATATE 100 MG CAPSULE PO PRN (08:14)
[2019-09-11] MEDS: APIXABAN 5 MG TABLET NG SCH ×2 (08:15→21:14)
[2019-09-11] MEDS: CHOLECALCIFEROL 1,000 UNIT TABLET NG SCH (08:18)
[2019-09-11 10:06] LABS: *IMMUNOGLOBULIN G, SERUM 695 mg/dL (586-1602); IMMUNOGLOBULIN A, SERUM 151 mg/dL (87-352); IMMUNOGLOBULIN M, SERUM 84 mg/dL (26-217)
[2019-09-11] MEDS: GLUCERNA 1.2 1000ML LIQUID NG PRN (11:12)
[2019-09-11] MEDS: LORAZEPAM 1 MG TABLET NG PRN (11:30)
--- NOTE | 2019-09-11 11:57 | NUR ---
Clinical Pharmacy Note: Vancomycin Pharmacy to Dose Subjective: To continue vancomycin in this 63 y/o female for indication of PNA. Patient also tested covid+ 08/31 Objective: weight 95kg height 165cm BUN/SCr 25/0.5 WBC 3.1 temp 98.4 Vanco trough level on 09/04 at 2030: 15 Vanco trough level 09/07 at 0850 (taken late, last dose given 1hr early): 13.6 Vanco trough level 09/09 at 0455 (measured on the am labs, 4 hrs early than next dose):14.2 Vanco trough level 09/09 @ 2030: 12 Vanco trough level pending 09/11 @0230 Assessment/Plan As trough was subtherapeutic, will adjust regimen to 1500mg q10hr with new estimated trough of 16.4, Third dose today at 1700. Trough ordered before 4th scheduled dose, due tomorrow early am at 0230. RN will be endorsed to hold dose if Tr were to resulted >20. Will check level in am and adjust as needed. Will follow
--- NOTE | 2019-09-11 19:18 | NUR ---
PT ON CONT MELO VENT WITH 7.5 ET/TUBE IN PLACE AND SECURED, WITH VENT SETTINGS A/C 16, fIO2 60%, TV 550, PEEP 5, PT IS SEDATED ON DIPRIVAN, SINUS SURAJ ON THE MONiTOR, AND HEMODYNAMICALLY STABLE. AIR MATTRESS INFLATED, SCD'S ON, BED IN LOW POSITION, AND SIDE RAILS UP X2. SAFETY ALARMS ON.
[2019-09-11] MEDS: DOCUSATE SODIUM 100 MG/10 ML LIQUID UDC NG SCH (20:59)
[2019-09-11] MEDS: LATANOPROST OPHT DROP 2.5 ML BOTTLE EACHEYE SCH (21:00)
[2019-09-11] MEDS: ropiniROLE 0.5 MG TABLET NG SCH (21:07)
--- NOTE | 2019-09-11 23:34 | NUR ---
PT ON CONT MELO VENT WITH 7.5 ET/TUBE IN PLACE ,SECURED BY ANCHOR FAST, WITH SAME CURRENT VENT SETTINGS, PT DOES ASSIST AT TIMES, PT IS SEDATED, BUT WAKES UP AT TIMES, STRONG COUGH, SUCTIONED LIGHT PALE YELL TINGE SECRETIONS, MDI GIVEN 2 PUFFS OF ATROVENT CHANGE HME AND VIRAL FILTER, NO OTHER CHANGES MADE AT THIS TIME.Se FUCHS RCP Addendum: 09/11/19 at 2336 by MARIA E FUCHS RT Amended: Links added.
[2019-09-12] VITALS (26 sets, daily range): BP systolic 85–135; BP diastolic 45–86
[2019-09-12] MEDS: PROPOFOL 100 ML IV PRN ×8 (00:26→16:36)
[2019-09-12] MEDS: MEROPENEM 1 G in IV NORMAL SALINE 100 ML IV SCH ×3 (00:28→16:55)
[2019-09-12 03:17] LABS: BASOPHILS % (AUTO) 0.2 % (0.0-2.0); EOSINOPHILS % (AUTO) 0.4 % (0.0-7.0); HEMATOCRIT 33.7 % (31.2-41.9); HEMOGLOBIN 11.1 g/dL (10.9-14.3); LYMPHOCYTES # (AUTO) 0.2 K/uL (20.0-40.0); LYMPHOCYTES % (AUTO) 6.1 % (20.5-51.5); MEAN CORPUSCULAR HEMOGLOBIN 29.9 uug (24.7-32.8); MEAN CORPUSCULAR HGB CONC 33 g/dL (32.3-35.6); MEAN CORPUSCULAR VOLUME 90.7 fL (75.5-95.3); MONOCYTES # (AUTO) 0.3 K/uL (2.0-10.0); NEUTROPHILS # (AUTO) 3.1 K/uL (1.8-8.9); NEUTROPHILS % (AUTO) 84.3 % (38.5-71.5); PLATELET COUNT (AUTO) 181 K/uL (179-408); RED BLOOD CELL COUNT(AUTO) 3.71 MIL/uL (3.63-4.92); WHITE BLOOD COUNT (AUTO) 3.7 K/uL (3.8-11.8)
[2019-09-12] MEDS: VANCOMYCIN IV 1,500 MG in IV DEXTROSE 5% 500 ML IV SCH ×2 (03:22→13:27)
[2019-09-12 03:27] LABS: CREATININE 0.5 mg/dL (0.6-1.3); MAGNESIUM 2.1 mg/dL (1.8-2.4); PHOSPHOROUS 3.4 mg/dL (2.5-4.9); POTASSIUM 4.3 mmol/L (3.5-5.1)
[2019-09-12] MEDS: IPRATROPIUM BROMIDE IH SCH ×4 (04:16→16:09)
--- NOTE | 2019-09-12 07:30 | NUR ---
PT ON CONT MELO VENT WITH 7.5 ET/TUBE IN PLACE AND SECURED, WITH VENT SETTINGS A/C 16, fIO2 60%, TV 550, PEEP 5, PT IS SEDATED ON DIPRIVAN, SINUS ON THE MOINTOR, AND HEMODYNAMICALLY STABLE. AIR MATTRESS INFLATED, SCD'S ON, BED IN LOW POSITOIN, AND SIDE RAILS UP X2. SAFETY ALARMS ON.
[2019-09-12] MEDS: methylPREDNISolone SOD SUCC 40 MG/ML VIAL IV SCH (08:12)
[2019-09-12] MEDS: ASCORBIC ACID 500 MG TABLET NG SCH (08:14)
[2019-09-12] MEDS: GABAPENTIN 100 MG CAPSULE NG SCH ×2 (08:14→16:54)
[2019-09-12] MEDS: ZINC SULFATE 220 MG CAPSULE NG SCH (08:14)
[2019-09-12] MEDS: CULTURELLE CAPSULE NG SCH (08:14)
[2019-09-12] MEDS: PROTEIN SUPPLEMENT (PROSTAT) 30 ML LIQUID NG SCH ×2 (08:14→13:29)
[2019-09-12] MEDS: DIAZEPAM 5 MG TABLET NG SCH (08:14)
[2019-09-12] MEDS: BENZONATATE 100 MG CAPSULE PO PRN (08:15)
[2019-09-12] MEDS: PANTOPRAZOLE ORAL SUSPENSION 40 MG SUSPDR.PKT NG SCH (08:15)
[2019-09-12] MEDS: FLUOXETINE HCL 20 MG CAPSULE NG SCH (08:15)
[2019-09-12] MEDS: CHOLECALCIFEROL 1,000 UNIT TABLET NG SCH (08:16)
[2019-09-12] MEDS: risperiDONE 1 MG TABLET NG SCH ×3 (08:16→16:54)
[2019-09-12] MEDS: APIXABAN 5 MG TABLET NG SCH (08:23)
[2019-09-12 08:40] LABS: ABG HCO3 35.1 mmol/L; ABG PCO2 60.2 mmHg (35.0-45.0); ABG PH 7.384 (7.350-7.450); ABG PO2 93.9 mmHg (75.0-100.0); ABG SITE RIGHT RADIAL; COHb 1.2 % (0.5-1.5); MetHb 0.3 % (0.0-1.5); O2Hb 95.7 % (94.0-97.0); VENT MODE VENT - A/C; VT, ABG 500 mL
--- NOTE | 2019-09-12 09:00 | NUR ---
Clinical Pharmacy Note: Vancomycin Pharmacy to Dose Subjective: To continue vancomycin in this 63 y/o female for indication of PNA. Patient also tested covid+ 08/31 Objective: weight 95kg height 165cm BUN/SCr 23/0.5 WBC 3.7 temp 98.2 Vanco trough level on 09/04 at 2030: 15 Vanco trough level 09/07 at 0850 (taken late, last dose given 1hr early): 13.6 Vanco trough level 09/09 at 0455 (measured on the am labs, 4 hrs early than next dose):14.2 Vanco trough level 09/09 @ 2030: 12 Vanco trough level 09/11 @0230: 17.1 Assessment/Plan As trough is within subtherapeutic range, will continue same dose of vanco 1500mg IVPB q10hr for today. Next dose today at 1300. Will monitor renal function & adjust the dose or repeat the level if needed. Will follow
[2019-09-12] MEDS: LORAZEPAM 1 MG TABLET NG PRN (10:57)
[2019-09-12 13:25] LABS: ALBUMIN 2.3 g/dL (2.9-4.4); ALPHA-1-GLOBULIN 0.3 g/dL (0.0-0.4); ALPHA-2-GLOBULIN 0.8 g/dL (0.4-1.0); BETA GLOBULIN 0.8 g/dL (0.7-1.3); GAMMA GLOBULIN 0.6 g/dL (0.4-1.8); GLOBULIN, TOTAL 2.4 g/dL (2.2-3.9); M-SPIKE Not Observed g/dL (Not Observed)
--- NOTE | 2019-09-12 14:40 | NUR ---
Contacted Tony max DPOA, He is aware that both of the patients' children agree to place patient on comfort care. Verbal telephone authorization received and witnessed by this racebook writer and Bryson Reynolds RN.
--- NOTE | 2019-09-12 17:00 | NUR ---
Patients daughter and son came to visit, ans signed the release of remains form and provided the mortuary information in order to proceed with comfort care. Dr. Beach notified that family continues with the comfort care wishes.
[2019-09-12] MEDS ORDERED: PROPOFOL 100 ML IV ONE (19:00)
--- NOTE | 2019-09-12 19:22 | NUR ---
Received pt orally intubated with 7.5 ETT~22cm at lip line, on Cantu vent with the following settings of AC-16, Vt-550, PEEP+5, FIO2-60%. Pt sedated. No s/s of respiratory distress noted. Airway care done, pt responded to physical stimuli. ETT moved to the left. Resus. bag at bedside. PPE used. Vent and alarms checked and reset.
[2019-09-12] MEDS: MORPHINE SULFATE PF IV DRIP 100 MG in IV DEXTROSE 5% 96 ML IV PRN (19:23)
--- NOTE | 2019-09-12 19:23 | NUR ---
Report received. Patient on COVID19 isolation and on mechanical ventilation but with orders for terminal extubation and comfort measures. Morphine drip started via ISMAEL PICC line; Barbie hoskins dc'grupo.
[2019-09-12] MEDS ORDERED: DC PROPOFOL ONCE EXTUBATED XX PRN (19:38)
--- NOTE | 2019-09-12 20:00 | NUR ---
Extubated by Rikki RT. Placed on 5 L NC. Suctioned. Patient with mild facial grimace during suctioning. NGT dc'd during extubation.
--- NOTE | 2019-09-12 20:00 | NUR ---
Due to MD order pt terminally extubated and placed on 5LPM N/C. During extubation pt's RN Rosamaria was in the room.
--- NOTE | 2019-09-12 21:00 | NUR ---
With grunting respirations; Morphine drip titrated for comfort.
--- NOTE | 2019-09-12 22:30 | NUR ---
Continue to titrate Morphine drip for comfort. With noisy, grunting respirations.
[2019-09-13] VITALS: BP 90/57
--- NOTE | 2019-09-13 01:30 | NUR ---
With episodes of apnea. BP 76/33. Morphine drip at 14 mg/H.
[2019-09-13] MEDS: MORPHINE SULFATE PF IV DRIP 100 MG in IV DEXTROSE 5% 96 ML IV PRN (03:15)
--- NOTE | 2019-09-13 03:30 | NUR ---
With agonal rhythm on the monitor then asystole. Strip documented.
--- NOTE | 2019-09-13 03:36 | NUR ---
Patient apneic for 5 minutes Pupils fixed and dilated No audible heart tones and breath sounds auscultated No palpable pulses and corneal reflexes No measurable blood pressure Pronounced at 0332
--- NOTE | 2019-09-13 03:39 | NUR ---
[facility] notified of patient's expiration; spoke to Marisol. Case dismissed for donation; case# [id number].
--- NOTE | 2019-09-13 03:40 | NUR ---
Live In Caregiver Zully and admitting Shanita informed of patient's expiration. Spoke to patient's daughter Stefany. Made aware of patient's personal effects: Rosary, watch, cell phone, a small belt bag and an urn. Daughter stated she will come and pick them up. Belongings labeled.
--- NOTE | 2019-09-13 03:55 | NUR ---
[facility] notified tel #[phone]. Spoke to Aravind Donovan; ETA will be at least 3-4 hours. Business Law Professor informed. Post mortem care done. Upper denture placed in patient's mouth. All belongings labeled and at bedside.
--- NOTE | 2019-09-13 06:30 | NUR ---
[facility] of the remains pickle maker. Spoke to Aravind and stated that he will call back for ETA.
--- NOTE | 2019-09-13 06:45 | NUR ---
Aravind from [facility] called back with ETA of 90 minutes. Nursing production clerks supervisor informed.
--- NOTE | 2019-09-13 07:30 | NUR ---
Call placed to patient's daughter Stefany re: personal effects. Stated that she will come and picker and packer items as discussed. Endorsed to Anat KELSEY.
--- NOTE | 2019-09-13 08:20 | NUR ---
PT'S BODY GOT PICKED UP BY [facility]. PT'S BELONGINGS WILL BE PICKED UP BY THE DAUGHTER LIDIA. FAMILY LAW MEDIATOR IS AWARE.
== END 2019-09-13 08:20 | disposition expired | DRG 870 ==
LOC: ER 16:11 → TELE 17:57 → CCU 09-03 14:12
PROVIDERS: ATTEND Internal Medicine
PROC: 5A1955Z Respiratory Ventilation, Greater than 96 Consecutive Hours (ICD-10-PCS; principal; 2019-09-05)
PROC: 0BH17EZ Insertion of Endotracheal Airway into Trachea, Via Natural or Artificial Opening (ICD-10-PCS; 2019-09-05)
PROC: 02HV33Z Insertion of Infusion Device into Superior Vena Cava, Percutaneous Approach (ICD-10-PCS; 2019-09-06)
PROC: B548ZZA Ultrasonography of Superior Vena Cava, Guidance (ICD-10-PCS; 2019-09-06)
DX: A41.89 Other specified sepsis (principal); U07.1 COVID-19; J12.89 Other viral pneumonia; J96.02 Acute respiratory failure with hypercapnia; J96.01 Acute respiratory failure with hypoxia; I50.33 Acute on chronic diastolic (congestive) heart failure; D68.69 Other thrombophilia; D61.818 Other pancytopenia; J44.1 Chronic obstructive pulmonary disease with (acute) exacerbation; J44.0 Chronic obstructive pulmonary disease with (acute) lower respiratory infection; R65.20 Severe sepsis without septic shock; G20 Parkinson's disease; Z51.5 Encounter for palliative care; E66.01 Morbid (severe) obesity due to excess calories; D50.9 Iron deficiency anemia, unspecified; E03.9 Hypothyroidism, unspecified; F41.9 Anxiety disorder, unspecified; F32.9 Major depressive disorder, single episode, unspecified; F25.9 Schizoaffective disorder, unspecified; I11.0 Hypertensive heart disease with heart failure; K21.9 Gastro-esophageal reflux disease without esophagitis; M19.90 Unspecified osteoarthritis, unspecified site; Z66 Do not resuscitate; Z79.01 Long term (current) use of anticoagulants; Z79.899 Other long term (current) drug therapy; Z86.711 Personal history of pulmonary embolism; Z87.891 Personal history of nicotine dependence; Z92.21 Personal history of antineoplastic chemotherapy; Z99.81 Dependence on supplemental oxygen; Z90.49 Acquired absence of other specified parts of digestive tract; K76.0 Fatty (change of) liver, not elsewhere classified; I48.0 Paroxysmal atrial fibrillation; G62.9 Polyneuropathy, unspecified; J40 Bronchitis, not specified as acute or chronic; Z68.34 Body mass index [BMI] 34.0-34.9, adult; Z22.322 Carrier or suspected carrier of Methicillin resistant Staphylococcus aureus; C50.912 Malignant neoplasm of unspecified site of left female breast; F60.3 Borderline personality disorder; M48.00 Spinal stenosis, site unspecified
CPT/HCPCS: 36415; 36600; 70030-TC; 71045; 74018; 76700; 82378; 82747; 82784; 82785; 83550; 83605; 83615; 83735; 84100; 84155; 84165; 84443; 84478; 85014; 85025; 85610; 85651; 85730; 86140; 86300; 86334; 87040; 87070; 87086; 87400; 93005; 94002; 94003; 94640; A4663; A9150; G0378; J0330; J1442; J1940; J2185; J2274; J2405; J2920; J3370; J3490; J3535; J3590; J7030; J7040; J7050; J7060